=== PATIENT | female | born 1985 | race Caucasian/White ===

== ENCOUNTER 2018-06-12 10:48 | Inpatient (IN) | payer MEDICARE, MEDICAID ==
[2018-06-12] MEDS ORDERED: METOCLOPRAMIDE HCL INJ/PF 10 MG/2 ML SDV IV ONE (12:04)
[2018-06-12] MEDS ORDERED: DIPHENHYDRAMINE HCL 50 MG/ML VIAL IV ONE (12:05)
[2018-06-12] MEDS ORDERED: HYDROMORPHONE HCL INJ/PF 2 MG/ML AMPULE IV ONE (12:06)
[2018-06-12] MEDS ORDERED: NORMAL SALINE 1000 ML 1,000 ML IV ONE (12:07)
[2018-06-12 12:45] LABS: APPEARANCE,URINE CLEAR; BILIRUBIN,URINE NEGATIVE (NEGATIVE); COLOR,URINE YELLOW; GLUCOSE, URINE NEGATIVE (NEGATIVE); HEMOGLOBIN 14.9 g/dL (12.0-15.5); KETONES,URINE NEGATIVE (NEGATIVE); LEUKOCYTE ESTERASE,URINE NEGATIVE (NEGATIVE); MEAN CORPUSCULAR HEMOGLOBIN 29.2 pg (27.0-33.4); MEAN CORPUSCULAR HGB CONC 33.9 g/dL (32.0-36.0); MEAN CORPUSCULAR VOLUME 86 fl (80-97); NITRITE,URINE NEGATIVE (NEGATIVE); PLATELET COUNT 519 10^3/uL (150-450); PROTEIN,URINE NEGATIVE (NEGATIVE); RED BLOOD COUNT 5.11 10^6/uL (3.72-5.28); UROBILINOGEN,URINE NEGATIVE mg/dL (<2.0); WHITE BLOOD COUNT 20.1 10^3/uL (4.0-10.5)
[2018-06-12 13:11] LABS: ALANINE AMINOTRANSFERASE 70 U/L (9-52); ALBUMIN 4.6 g/dL (3.5-5.0); ALKALINE PHOSPHATASE 143 U/L (38-126); ANION GAP 16 (5-19); ASPARTATE AMINO TRANSFERASE 117 U/L (14-36); BILIRUBIN,DIRECT 0.6 mg/dL (0.0-0.4); BILIRUBIN,TOTAL 1.3 mg/dL (0.2-1.3); BLOOD UREA NITROGEN 9 mg/dL (7-20); CARBON DIOXIDE 24 mmol/L (22-30); CHLORIDE 104 mmol/L (98-107); GLUCOSE 113 mg/dL (75-110); POTASSIUM 4.4 mmol/L (3.6-5.0); SODIUM 144.1 mmol/L (137-145); TOTAL PROTEIN 7.8 g/dL (6.3-8.2)
[2018-06-12 13:20] LABS: ABSOLUTE LYMPHOCYTES# (MANUAL) 1.8 10^3/uL (0.5-4.7); ABSOLUTE MONOCYTES # (MANUAL) 0.2 10^3/uL (0.1-1.4); ABSOLUTE NEUTROPHILS# (MANUAL) 18.1 10^3/uL (1.7-8.2); BAND NEUTROPHILS % (MANUAL) 2 % (3-5); BASOPHILS % (MANUAL) 0 % (0-2); EOSINOPHILS % (MANUAL) 0 % (0-6); LYMPHOCYTES % (MANUAL) 9 % (13-45); MONOCYTES % (MANUAL) 1 % (3-13); PLATELET COMMENT INCREASED; POLYCHROMASIA SLIGHT; SEGMENTED NEUTROPHILS % (MAN) 88 % (42-78); TOTAL CELLS COUNTED 100
--- NOTE | 2018-06-12 14:54 | ER Document Report ---
ED General - General Chief Complaint: Abdominal Pain Stated Complaint: ABDOMINAL PAIN Time Seen by Provider: 06/12/18 11:56 TRAVEL OUTSIDE OF THE [place] IN LAST 30 DAYS: No - HPI Onset: This morning Onset/Duration: Sudden, Constant Quality of pain: Sharp Severity: Moderate Associated symptoms: Nausea Exacerbated by: Denies Relieved by: Denies Similar symptoms previously: No Recently seen / treated by doctor: No Notes: Patient is a 33-year-old female that presents to the emergency department for chief complaint of abdominal pain. Patient complaining of a sharp epigastric abdominal pain. The pain is nonradiating. She denies any exacerbating or relieving factors. The pain began this morning and has been increasing in intensity and constant since onset. She reports some nausea with no emesis. She states she has a history of GERD and Agustina fundoplication in the past. She states she has intermittent episodes of epigastric pain but has never had anything similar to this. She denies history of gallbladder issues or pancreatitis. She occasionally drinks alcohol but has not had anything in the last few days. Past Medical History: Seizures, GERD Past Surgical History: Agustina fundoplication Social History: Occasional alcohol. Daily marijuana. Denies tobacco Family History: Reviewed and noncontributory for presenting illness Allergies: Reviewed, see documented allergy list. REVIEW OF SYSTEMS: CONSTITUTIONAL : No fever No chills No diaphoresis No recent illness EENT: No vision changes No congestion No sore throat CARDIOVASCULAR: No chest pain No palpitations RESPIRATORY: No shortness of breath No cough No difficulty breathing GASTROINTESTINAL: abdominal pain nausea No vomiting No diarrhea GENITOURINARY: No dysuria No hematuria No difficulty urinating MUSCULOSKELETAL: No back pain No leg pain No arm pain SKIN: No rashes No lesions LYMPHATIC: No swollen, enlarged glands. NEUROLOGICAL: No lightheadedness No headache No weakness No paresthesias PSYCHIATRIC: No anxiety No depression PHYSICAL EXAMINATION: Vital signs reviewed, nursing noted reviewed. GENERAL: Well-appearing, well-nourished and in no acute distress. HEAD: Atraumatic, normocephalic. EYES: Eyes appear normal, extraocular movements intact, sclera anicteric, conjunctiva are normal. ENT: nares patent, oropharynx clear without exudates. Moist mucous membranes. NECK: Normal range of motion, supple without lymphadenopathy LUNGS: Breath sounds clear to auscultation bilaterally and equal. No wheezes rales or rhonchi. HEART: Regular rate and rhythm without murmurs ABDOMEN: Soft, epigastric and right upper quadrant tenderness, normoactive bowel sounds. No rebound, guarding, or rigidity. No masses appreciated. EXTREMITIES: Nontender, good range of motion, no pitting or edema. NEUROLOGICAL: No focal neurological deficits. Moves all extremities spontaneously Motor and sensory grossly intact on exam. PSYCH: Normal mood, normal affect. SKIN: Warm, Dry, normal turgor, no rashes or lesions noted on exposed skin - Related Data Allergies/Adverse Reactions: morphine Allergy (Verified 06/12/18 12:03) Penicillins Allergy (Verified 06/12/18 10:52) Past Medical History - Social History Smoking Status: Never Smoker Frequency of alcohol use: Occasional Drug Abuse: Marijuana Family History: Reviewed & Not Pertinent Patient has suicidal ideation: No Patient has homicidal ideation: No Neurological Medical History: Reports: Hx Seizures Renal/ Medical History: Denies: Hx Peritoneal Dialysis GI Medical History: Reports: Hx Gastroesophageal Reflux Disease Psychiatric Medical History: Reports: Hx Depression - +anxiety Past Surgical History: Reports: Hx Abdominal Surgery - niss surgery, Hx Oral Surgery - wisdom teeth, Hx Tonsillectomy Physical Exam - Vital signs Vitals: Temp Pulse Resp BP Pulse Ox 97.8 F 83 12 153/86 H 97 06/12/18 10:54 06/12/18 10:54 06/12/18 10:54 06/12/18 10:54 06/12/18 10:54 Course - Re-evaluation Re-evalutation: 06/12/18 14:54 Vitals reviewed. Nursing notes reviewed. Patient is feeling improved after Zofran and fentanyl. Lab work shows a significant elevation of her lipase consistent with acute pancreatitis. She also has a leukocytosis of 20. Ultrasound obtained to evaluate for acute cholecystitis and is pending at this time. 06/12/18 15:13 Patient reevaluated and is now stating her pain has started to increase. She will be given a second dose of fentanyl. Her nausea is still well controlled. Patient's ultrasound shows cholelithiasis with no acute cholecystitis. Patient will be admitted to the hospital for further treatment of her acute pancreatitis. Case discussed with Dr. Combs who is accepted admission. Patient and family in agreement with this plan. She is stable at time of admission Laboratory 06/12/18 06/12/18 06/12/18 12:25 12:25 12:25 WBC 20.1 H RBC 5.11 Hgb 14.9 Hct 44.0 MCV 86 MCH 29.2 MCHC 33.9 RDW 14.0 Plt Count 519 H Total Counted 100 Seg Neutrophils % Not Reportable Seg Neuts % (Manual) 88 H Band Neutrophils % 2 L Lymphocytes % Not Reportable Lymphocytes % (Manual) 9 L Monocytes % Not Reportable Monocytes % (Manual) 1 L Eosinophils % Not Reportable Eosinophils % (Manual) 0 Basophils % Not Reportable Basophils % (Manual) 0 Absolute Neutrophils Not Reportable Abs Neuts (Manual) 18.1 H Absolute Lymphocytes Not Reportable Abs Lymphs (Manual) 1.8 Absolute Monocytes Not Reportable Abs Monocytes (Manual) 0.2 Absolute Eosinophils Not Reportable Absolute Eos (Manual) 0.0 Absolute Basophils Not Reportable Abs Basophils (Manual) 0.0 Platelet Comment INCREASED Polychromasia SLIGHT Sodium 144.1 Potassium 4.4 Chloride 104 Carbon Dioxide 24 Anion Gap 16 BUN 9 Creatinine 0.72 Est GFR ( Amer) > 60 Est GFR (Non-Af Amer) > 60 Glucose 113 H Calcium 10.0 Total Bilirubin 1.3 Direct Bilirubin 0.6 H Neonat Total Bilirubin Not Reportable Neonat Direct Bilirubin Not Reportable Neonat Indirect Bili Not Reportable AST 117 H ALT 70 H Alkaline Phosphatase 143 H Total Protein 7.8 Albumin 4.6 Lipase 42514.0 H Beta HCG, Quant < 2.39 Total Beta HCG NEGATIVE Urine Color YELLOW Urine Appearance CLEAR Urine pH 5.0 Ur Specific [place] 1.010 Urine Protein NEGATIVE Urine Glucose (UA) NEGATIVE Urine Ketones NEGATIVE Urine Blood MODERATE H Urine Nitrite NEGATIVE Urine Bilirubin NEGATIVE Urine Urobilinogen NEGATIVE Ur Leukocyte Esterase NEGATIVE Urine WBC (Auto) 1 Urine RBC (Auto) 3 Squamous Epi Cells Auto 2 Urine Mucus (Auto) RARE Urine Ascorbic Acid NEGATIVE Abdomen Ultrasound 06/12/18 12:37 IMPRESSION: Cholelithiasis. - Vital Signs Vital signs: Temp Pulse Resp BP Pulse Ox 97.8 F 83 12 153/86 H 97 06/12/18 10:54 06/12/18 10:54 06/12/18 10:54 06/12/18 10:54 06/12/18 10:54 - Laboratory Result Diagrams: 06/12/18 12:25 06/12/18 12:25 Laboratory results interpreted by me: 06/12/18 06/12/18 06/12/18 12:25 12:25 12:25 WBC 20.1 H Plt Count 519 H Seg Neuts % (Manual) 88 H Band Neutrophils % 2 L Lymphocytes % (Manual) 9 L Monocytes % (Manual) 1 L Abs Neuts (Manual) 18.1 H Glucose 113 H Direct Bilirubin 0.6 H AST 117 H ALT 70 H Alkaline Phosphatase 143 H Lipase 34005.0 H Urine Blood MODERATE H Discharge - Discharge Clinical Impression: Pancreatitis Qualifiers: Chronicity: acute Pancreatitis type: other Acute pancreatitis complication: unspecified Qualified Code(s): K85.80 - Other acute pancreatitis without necrosis or infection Condition: Stable Disposition: ADMITTED INPATIENT Admitting Provider: Hospitalist Unit Admitted: Medical Floor Referrals: ALEXANDREA ANTOINE DO [Primary Care Provider] - Follow up as needed
--- NOTE | 2018-06-12 15:04 | RADIOLOGY REPORT (SQ) ---
EXAM DESCRIPTION: U/S ABDOMEN LIMITED W/O DOP COMPLETED DATE/TIME: 06/12/2018 2:39 pm REASON FOR STUDY: upper abdominal pain COMPARISON: None. TECHNIQUE: Dynamic and static grayscale images acquired of the abdomen and recorded on PACS. Additio frandy selected color Doppler and spectral images recorded. LIMITATIONS: None. FINDINGS: PANCREAS: No masses. Visualized pancreatic duct normal caliber. LIVER: No masses. Echotexture normal. LIVER VASCULATURE: Normal directional flow of the main portal vein and hepatic veins. GALLBLADDER: Small gallstones are present. There is no ductal dilatation. There is no wall thickeni ng. There is no pericholecystic fluid. ULTRASOUND-DETECTED CONTRERAS'S SIGN: Negative. INTRAHEPATIC DUCTS AND COMMON DUCT: CBD and intrahepatic ducts normal caliber. No filling defects. INFERIOR VENA CAVA: Not imaged. AORTA: No aneurysm. RIGHT KIDNEY: Normal size, 11.3 cm. Normal echogenicity. No solid or suspicious masses. No hydroneph rosis. No calcifications. PERITONEAL AND RIGHT PLEURAL SPACE: No ascites or effusions. OTHER: No other significant findings. IMPRESSION: Cholelithiasis. TECHNICAL DOCUMENTATION: JOB ID: [id number] [employer]- All Rights Reserved Reading location - IP/workstation name: [email or web address]
[2018-06-12] MEDS ORDERED: DEXTROSE 40% GEL 15 GM TUBE PO PRN ×2 (16:01)
[2018-06-12] MEDS ORDERED: ACETAMINOPHEN 650 MG SUPP.RECT PR PRN (16:01)
[2018-06-12] MEDS ORDERED: GLUCAGON,HUMAN RECOMB 1 MG INJ SUBCUT PRN (16:01)
[2018-06-12] MEDS ORDERED: DEXTROSE 50%-WATER 25 GM/50 ML DISP.SYRIN IV PRN ×2 (16:01)
--- NOTE | 2018-06-12 16:30 | PDOC H&P ---
History of Present Illness Admission Date/PCP: 06/12/18 15:22 Corinne GIBBONS Patient complains of: Abdominal pain History of Present Illness: LEIGH PAEZ is a 33 year old female with a past medical history of gastroesophageal reflux disease, Agustina fundoplication, hypothyroidism, depression, anxiety disorder, migraine headaches, seizure disorder, came to the emergency room with complaints of severe abdominal pain from this morning. She was stomach spasms since yesterday like a gas building and it was relieved after burping and passing gas she felt better woke up this morning middle of the night had one bowel movement followed by severe abdominal pain epigastric pain according to her is 20 / 10 associated retching denies any nausea or vomitings . Denies any fevers denies any diarrhea denies any constipation denies any other symptoms. He never had this problem before never been admitted to the hospital for this problem before. Denies any history of gallstones. Denies any history of heavy alcohol use. Denies any history of any IV drug abuse. Past Medical History Cardiac Medical History: Reports: None Pulmonary Medical History: Reports: None EENT Medical History: Reports: None Neurological Medical History: Reports: Seizures Endocrine Medical History: Reports: Hypothyroidism Malignancy Medical History: Reports: None GI Medical History: Reports: Gastroesophageal Reflux Disease Psychiatric Medical History: Reports: Depression - +anxiety, General Anxiety Disorder Infectious Medical History: Reports: None Past Surgical History Past Surgical History: Reports: Tonsillectomy, Other - Left knee surgery. Social History Smoking Status: Never Smoker Family History Family History: Reviewed & Not Pertinent Parental Family History Reviewed: Yes - Heart disease, diabetes, cancer. Children Family History Reviewed: Yes Sibling(s) Family History Reviewed.: Yes Medication/Allergy Allergies/Adverse Reactions: morphine Allergy (Verified 06/12/18 12:03) Penicillins Allergy (Verified 06/12/18 10:52) Review of Systems Constitutional: ABSENT: fever(s), weight gain, weight loss Nose, Mouth, and Throat: ABSENT: mouth pain, sore throat Cardiovascular: ABSENT: edema, orthropnea, palpitations Respiratory: ABSENT: cough, hemoptysis Gastrointestinal: PRESENT: abdominal pain, nausea, other - Complains of severe abdominal pain on gentle palpation. Diffuse abdominal pain. Guarding and rigidity. Neurological: ABSENT: abnormal gait, abnormal speech, confusion, dizziness, focal weakness, syncope Psychiatric: ABSENT: anxiety, depression, homidical ideation, suicidal ideation Physical Exam Vital Signs: Temp Pulse Resp BP Pulse Ox 97.8 F 83 12 153/86 H 97 06/12/18 10:54 06/12/18 10:54 06/12/18 10:54 06/12/18 10:54 06/12/18 10:54 General appearance: PRESENT: severe distress Head exam: PRESENT: atraumatic Eye exam: PRESENT: PERRLA Mouth exam: PRESENT: moist Neck exam: ABSENT: carotid bruit, JVD, lymphadenopathy, thyromegaly Respiratory exam: PRESENT: clear to auscultation amanda. ABSENT: rales, rhonchi, wheezes Cardiovascular exam: PRESENT: RRR. ABSENT: diastolic murmur, rubs, systolic murmur Pulses: PRESENT: normal dorsalis pedis pul GI/Abdominal exam: PRESENT: other - Gentle palpation generalized severe abdominal pain with guarding and rigidity. Bowel sounds are very sluggish. Neurological exam: PRESENT: alert, awake, oriented to person, oriented to place , oriented to time, oriented to situation, CN II-XII grossly intact. ABSENT: motor sensory deficit Psychiatric exam: PRESENT: appropriate affect, normal mood. ABSENT: homicidal ideation, suicidal ideation Results Impressions: Abdomen Ultrasound 06/12/18 12:37 IMPRESSION: Cholelithiasis. Assessment & Plan - Diagnosis (1) Acute pancreatitis Qualifiers: Acute pancreatitis complication: unspecified Is this a current diagnosis for this admission?: Yes Plan: 06/12/2018 plan today is to admit the patient as inpatient. She is going to be n.p.o. I am going to start on IV fluids normal saline at 100 cc/h and PT is allergic to morphine so I cannot give him morphine or Dilaudid ,so I started her on IV fentanyl 25 mg micrograms every 4 hours as needed for pain. SURGICAL consult was requested. CT abdomen pelvis with p.o. IV contrast was requested. Started on IV Levaquin 500 mg daily, Flagyl 500 mg IV 3 times daily. Blood cultures was requested. Patient is on admission is more than 17,000. Order for serial lipase and amylase . (2) GERD (gastroesophageal reflux disease) Is this a current diagnosis for this admission?: Yes Plan: 06/12/2018 patient has history of gastric acid reflux disease with Agustina fundoplication. . She is going to be on famotidine 20 mg IV twice daily. (3) Depression Qualifiers: Depression Type: unspecified Qualified Code(s): F32.9 - Major depressive disorder, single episode, unspecified Is this a current diagnosis for this admission?: Yes Plan: 06/12/2018 patient is given the history of depression. Because she is n.p.o. I am going to put her on Ativan 1 mg IV every 6 as needed for anxiety. Denies any depressive symptoms today. - Time Time Spent: 30 to 50 Minutes Critical Time spent with patient: Less than 15 minutes Anticipated discharge: Home
[2018-06-12 17:18] LABS: INTERNATIONAL RATION (INR) 1.02; PROTHROMBIN TIME 13.9 SEC (11.4-15.4)
[2018-06-12] MEDS: FENTANYL CITRATE INJ/PF 100 MCG/2 ML AMPUL IV PRN ×2 (17:26→21:30)
[2018-06-12] MEDS: NORMAL SALINE 1000 ML 1,000 ML IV PRN (18:16)
[2018-06-12] MEDS: LEVOFLOXACIN 500 MG/D5W RTU 500 MG/100 ML RTUPB IV SCH (18:17)
--- NOTE | 2018-06-12 18:38 | EKG REPORT ---
SEVERITY:- NORMAL ECG - SINUS RHYTHM : Confirmed by: Angelita Reese 12-Jun-2018 18:37:15
--- NOTE | 2018-06-12 19:38 | PDOC CONSULTATION ---
Consultation Consult Date: 06/12/18 Consult reason:: Acute pancreatitis History of Present Illness Admission Date/PCP: 06/12/18 15:22 Corinne GIBBONS Patient complains of: Abdominal pain History of Present Illness: LEIGH PAEZ is a 33 year old female Who presents to the emergency department via ground rescue complaining of a 1 day history of abdominal pain intense epigastric associate with nausea vomiting ; one bowel movement last p.m., normal. Denies history of previous episodes of acute abdominal pain; no history of trauma. She is several years status post Agustina fundoplication for gastroesophageal reflux disease. Patient evaluated in the emergency department where she is found to have significant abdominal tenderness, leukocytosis, hyper lipasemia and gallbladder ultrasonography showing gallstones. Patient was admitted to the hospitalist service for first episode of acute pancreatitis likely secondary to cholelithiasis. Surgery was consulted Past Medical History Past Medical History: GERD; overweight Cardiac Medical History: Reports: None Pulmonary Medical History: Reports: None EENT Medical History: Reports: None Neurological Medical History: Reports: Seizures Endocrine Medical History: Reports: Hypothyroidism Malignancy Medical History: Reports: None GI Medical History: Reports: Gastroesophageal Reflux Disease Psychiatric Medical History: Reports: Depression, General Anxiety Disorder Infectious Medical History: Reports: None Past Surgical History Past Surgical History: Reports: Tonsillectomy, Other - Left knee surgery. Social History Smoking Status: Former Smoker Number of Years Smokin Last Time Smoked: 5 years ago Frequency of Alcohol Use: Occasional Hx Recreational Drug Use: Yes Drugs: Marijuana Hx Prescription Drug Abuse: No - Advance Directive Resuscitation Status: Full Code Family History Family History: Reviewed & Not Pertinent Parental Family History Reviewed: Yes Children Family History Reviewed: Yes Sibling(s) Family History Reviewed.: Yes Medication/Allergy Home Medications: Clonazepam [Klonopin 1 mg Tablet] 1 mg PO Q8HP PRN 06/12/18 Norgestimate-Ethinyl Estradiol [Zcj-Iv-[id number] Tablet] 1 each PO DAILY Topiramate [Topamax 100 Mg Tablet] 100 mg PO Q8 06/12/18 Venlafaxine HCl ER [Effexor Xr 75 mg Cap.sr] 75 mg PO DAILY 06/12/18 Allergies/Adverse Reactions: morphine Allergy (Verified 06/12/18 12:03) Penicillins Allergy (Verified 06/12/18 10:52) Review of Systems Constitutional: PRESENT: as per HPI Eyes: ABSENT: visual disturbances Ears: ABSENT: hearing changes Cardiovascular: ABSENT: chest pain, dyspnea on exertion, edema, orthropnea, palpitations Respiratory: ABSENT: cough, hemoptysis Gastrointestinal: PRESENT: as per HPI Integumentary: ABSENT: rash, wounds Neurological: ABSENT: abnormal gait, abnormal speech, confusion, dizziness, focal weakness, syncope Physical Exam Vital Signs: Temp Pulse Resp BP Pulse Ox 98.4 F 74 18 141/87 H 99 06/12/18 17:49 06/12/18 17:49 06/12/18 17:49 06/12/18 17:49 06/12/18 17:49 Intake & Output 06/11/18 06/12/18 06/13/18 06:59 06:59 06:59 Intake Total 1000 Balance 1000 Weight 99.01 kg General appearance: PRESENT: mild distress Head exam: PRESENT: normocephalic Eye exam: PRESENT: EOMI Mouth exam: PRESENT: dry mucosa Respiratory exam: PRESENT: clear to auscultation amanda Cardiovascular exam: PRESENT: RRR GI/Abdominal exam: PRESENT: other - Diffusely tender with guarding in the epigastric region; bowel sounds hypoactive. No active vomiting. Rectal exam: PRESENT: deferred Extremities exam: PRESENT: full ROM Musculoskeletal exam: PRESENT: full ROM Neurological exam: PRESENT: alert, awake, oriented to time, oriented to situation Psychiatric exam: PRESENT: appropriate affect Results Impressions: Abdomen Ultrasound 06/12/18 12:37 IMPRESSION: Cholelithiasis. Assessment & Plan - Diagnosis (1) Acute pancreatitis Qualifiers: Acute pancreatitis complication: unspecified Is this a current diagnosis for this admission?: Yes Plan: Impression: Acute, first episode of pancreatitis, likely secondary to cholelithiasis with associated leukocytosis, elevated liver function studies, elevated lipase level and gallbladder ultrasonography showing gallstones; low likelihood of complicated disease Recommendations: 1. Agree with n.p.o., IV fluids, consideration for IV antibiotics, serial laboratory profile 2. Follow-up with CT scan of abdomen and pelvis as ordered by hospitalist service 3. If patient improves with current medical management, anticipate interval laparoscopic, possible open cholecystectomy with intraoperative cholangiography this admission. This was discussed with patient. (2) Elevated LFTs Is this a current diagnosis for this admission?: Yes (3) Cholelithiasis Is this a current diagnosis for this admission?: Yes (4) Depression Qualifiers: Depression Type: unspecified Qualified Code(s): F32.9 - Major depressive disorder, single episode, unspecified Is this a current diagnosis for this admission?: Yes (5) GERD (gastroesophageal reflux disease) Is this a current diagnosis for this admission?: Yes - Time Time Spent: 30 to 50 Minutes Smoking Cessation Education: over 10 minutes Medications reviewed and adjusted accordingly: Yes Anticipated discharge: Home - Inpatient Certification Based on my medical assessment, after consideration of the patient's comorbidities, presenting symptoms, or acuity I expect that the services needed warrant INPATIENT care.: Yes I certify that my determination is in accordance with my understanding of Medicare's requirements for reasonable and necessary INPATIENT services [42 CFR 412.3e].: Yes Medical Necessity: Need For IV Fluids, Need for Pain Control, Need for IV Antibiotics, Need for Surgery
--- NOTE | 2018-06-12 20:50 | RADIOLOGY REPORT (SQ) ---
EXAM DESCRIPTION: CT ABD/PELVIS WITH IV ORAL COMPLETED DATE/TIME: 06/12/2018 8:29 pm REASON FOR STUDY: PANCREATITIS COMPARISON: None. TECHNIQUE: CT scan of the abdomen and pelvis performed using helical scanning technique with dynamic intravenous contrast injection. Oral contrast. Images reviewed with lung, soft tissue, and bone win dows. Reconstructed coronal and sagittal MPR images reviewed. Delayed images for evaluation of the ur inary system also acquired. All images stored on PACS. All CT scanners at this facility use dose modulation, iterative reconstruction, and/or weight based d osing when appropriate to reduce radiation dose to as low as reasonably achievable (ALARA). [facility]: Dose Right [facility]: CareDose [facility]: Dose Right [facility]: Teradose 4D [facility]: ChaoWIFI CONTRAST TYPE AND DOSE: contrast/concentration: Isovue 350.00 mg/ml; Total Contrast Delivered: 100.0 ml; Total Saline Delivered: 72.0 ml RENAL FUNCTION: BUN 9 creatinine 0.7225 RADIATION DOSE: CT Rad equipment meets quality standard of care and radiation dose reduction techniq ues were employed. CTDIvol: 18.9 - 20.4 mGy. DLP: 2155 mGy-cm.. LIMITATIONS: None. FINDINGS: LOWER CHEST: No significant findings. No nodules or infiltrates. LIVER: Normal size. No masses. No dilated ducts. SPLEEN: Normal size. No focal lesions. PANCREAS: Mild peripancreatic edema. There is a small amount of fluid along the anterior renal fasci a on the left. No significant fluid collection in the pancreas. GALLBLADDER: No identified stones by CT criteria. No inflammatory changes to suggest cholecystitis. ADRENAL GLANDS: No significant masses or asymmetry. RIGHT KIDNEY AND URETER: No solid masses. No significant calcifications. No hydronephrosis or hyd roureter. LEFT KIDNEY AND URETER: No solid masses. No significant calcifications. No hydronephrosis or hydr oureter. AORTA AND VESSELS: No aneurysm. No dissection. Renal arteries, SMA, celiac without stenosis. RETROPERITONEUM: No retroperitoneal adenopathy, hemorrhage or masses. BOWEL AND PERITONEAL CAVITY: No masses or inflammatory changes. No free fluid or peritoneal masses. APPENDIX: Normal. PELVIS: No mass. No free fluid. Normal bladder. ABDOMINAL WALL: No masses. No hernias. BONES: No significant or acute findings. OTHER: No other significant finding. IMPRESSION: Mild pancreatitis. No pseudocyst. TECHNICAL DOCUMENTATION: JOB ID: [id number] Quality ID # [id number]: Final reports with documentation of one or more dose reduction techniques (e.g., Au tomated exposure control, adjustment of the mA and/or kV according to patient size, use of iterative reconstruction technique) 2010 [employer]- All Rights Reserved Reading location - IP/workstation name: [email or web address]
[2018-06-12] MEDS: FAMOTIDINE INJ/PF 20 MG/2 ML SDV IV SCH (21:10)
[2018-06-12] MEDS: ONDANSETRON HCL INJ/PF 4 MG/2 ML SDV IV PRN (21:10)
[2018-06-12] MEDS: METRONIDAZOLE 500 MG/NS RTU 500 MG/100 ML RTUPB IV SCH (21:11)
[2018-06-12] MEDS ORDERED: METRONIDAZOLE 500 MG/NS RTU 250 MG in CONTAINER,EMPTY 1 EACH IV SCH (22:00)
[2018-06-13] MEDS: FENTANYL CITRATE INJ/PF 100 MCG/2 ML AMPUL IV PRN (04:12)
[2018-06-13] MEDS: ONDANSETRON HCL INJ/PF 4 MG/2 ML SDV IV PRN ×4 (04:28→21:26)
[2018-06-13 04:59] LABS: ABSOLUTE LYMPHOCYTES (AUTO) 2.7 10^3/uL (0.5-4.7); ABSOLUTE MONOCYTES (AUTO) 0.7 10^3/uL (0.1-1.4); ABSOLUTE NEUT (AUTO) 12.1 10^3/uL (1.7-8.2); BASOPHILS % (AUTO) 0.2 % (0-2); EOSINOPHILS % (AUTO) 0.3 % (0-6); HEMATOCRIT 37.5 % (36.0-47.0); HEMOGLOBIN 12.9 g/dL (12.0-15.5); LYMPHOCYTES % (AUTO) 17.2 % (13-45); MEAN CORPUSCULAR HEMOGLOBIN 29.4 pg (27.0-33.4); MEAN CORPUSCULAR HGB CONC 34.3 g/dL (32.0-36.0); MEAN CORPUSCULAR VOLUME 86 fl (80-97); MONOCYTES % (AUTO) 4.2 % (3-13); PLATELET COUNT 385 10^3/uL (150-450); RED BLOOD COUNT 4.38 10^6/uL (3.72-5.28); RED CELL DISTRIBUTION WIDTH 14.1 % (11.5-14.0); SEGMENTED NEUTROPHILS % (AUTO) 78.1 % (42-78); TOTAL CELLS COUNTED % (AUTO) 100 %; WHITE BLOOD COUNT 15.5 10^3/uL (4.0-10.5)
[2018-06-13 05:30] LABS: AMYLASE 382 U/L (30-110); ANION GAP 14 (5-19); BLOOD UREA NITROGEN 7 mg/dL (7-20); CALCIUM 9.1 mg/dL (8.4-10.2); CARBON DIOXIDE 21 mmol/L (22-30); CHLORIDE 105 mmol/L (98-107); GLUCOSE 94 mg/dL (75-110); LIPASE 1481.2 U/L (23-300); POTASSIUM 3.9 mmol/L (3.6-5.0); SODIUM 140.3 mmol/L (137-145)
[2018-06-13] MEDS: METRONIDAZOLE 500 MG/NS RTU 500 MG/100 ML RTUPB IV SCH ×3 (06:05→21:25)
[2018-06-13] MEDS: NORMAL SALINE 1000 ML 1,000 ML IV PRN (06:07)
[2018-06-13] MEDS: ENOXAPARIN SODIUM INJ 40 MG/0.4 ML DISP.SYRIN SUBCUT SCH (10:43)
[2018-06-13] MEDS: KETOROLAC TROMETHAMINE INJ/PF 30 MG/1 ML SDV IV PRN ×3 (10:43→23:26)
[2018-06-13] MEDS: FAMOTIDINE INJ/PF 20 MG/2 ML SDV IV SCH ×2 (10:55→21:26)
[2018-06-13] MEDS ORDERED: HYDROMORPHONE HCL INJ/PF 2 MG/ML AMPULE IV PRN (13:14)
--- NOTE | 2018-06-13 13:14 | PDOC PROGRESS REPORT ---
Subjective Progress Note for:: 06/13/18 Subjective:: Still having diffuse abdominal pain. Reason For Visit: ACUTE PANCREATITIS Physical Exam Vital Signs: Temp Pulse Resp BP Pulse Ox 98.1 F 76 16 127/76 H 96 06/13/18 12:34 06/13/18 12:34 06/13/18 12:34 06/13/18 12:34 06/13/18 12:34 Intake & Output 06/12/18 06/13/18 06/14/18 06:59 06:59 06:59 Intake Total 2300 Balance 2300 Weight 100.7 kg General appearance: PRESENT: no acute distress, cooperative Eye exam: PRESENT: conjunctiva pink Respiratory exam: PRESENT: clear to auscultation amanda Cardiovascular exam: PRESENT: RRR GI/Abdominal exam: PRESENT: soft - Soft, mildly distended, diffuse abdominal tenderness especially in the upper abdomen without peritoneal signs Results Laboratory Results: 06/13/18 04:08 06/13/18 04:08 06/13/18 06/13/18 06/13/18 04:08 04:08 04:08 WBC 15.5 H RBC 4.38 Hgb 12.9 Hct 37.5 MCV 86 MCH 29.4 MCHC 34.3 RDW 14.1 H Plt Count 385 Seg Neutrophils % 78.1 H Lymphocytes % 17.2 Monocytes % 4.2 Eosinophils % 0.3 Basophils % 0.2 Absolute Neutrophils 12.1 H Absolute Lymphocytes 2.7 Absolute Monocytes 0.7 Absolute Eosinophils 0.0 Absolute Basophils 0.0 Sodium 140.3 Potassium 3.9 Chloride 105 Carbon Dioxide 21 L Anion Gap 14 BUN 7 Creatinine 0.63 Est GFR ( Amer) > 60 Est GFR (Non-Af Amer) > 60 Glucose 94 Calcium 9.1 Amylase 382 H Lipase 1481.2 H TSH 2.50 Impressions: Abdomen/Pelvis CT 06/12/18 00:00 IMPRESSION: Mild pancreatitis. No pseudocyst. Abdomen Ultrasound 06/12/18 12:37 IMPRESSION: Cholelithiasis. Assessment & Plan - Diagnosis (1) Acute pancreatitis Qualifiers: Acute pancreatitis complication: unspecified Is this a current diagnosis for this admission?: Yes Plan: Likely gallstone pancreatitis. Continue bowel rest, IV pain medication and IV fluids. When pancreatitis has subsided we will plan laparoscopic cholecystectomy. Her pathophysiology discussed with the patient with diagrams.
[2018-06-13] MEDS ORDERED: TOPIRAMATE 100 MG TABLET PO SCH (14:00)
[2018-06-13] MEDS: TOPIRAMATE 25 MG TABLET PO SCH ×2 (14:28→21:26)
--- NOTE | 2018-06-13 17:33 | PDOC PROGRESS REPORT ---
Subjective Progress Note for:: 06/13/18 Subjective:: The patient is a 33-year-old female with a past medical history of GERD, Agustina fundoplication, hypothyroidism, depression, anxiety, migraines, and seizure disorder who was admitted 06/12/18 with cholelithiasis and pancreatitis. Patient was seen on morning rounds. She was found resting in bed comfortably on room air. Initially she was sleeping, but did wake easily when I set her name. She reports continued abdominal discomfort and nausea but no further episodes of emesis. She reports that her pain has been moderately well controlled with the fentanyl. She denies fever, chills, chest pain, dyspnea, diarrhea and constipation. She has no new questions or concerns today. No concerns per nursing. Reason For Visit: ACUTE PANCREATITIS Physical Exam Vital Signs: Temp Pulse Resp BP Pulse Ox 98.3 F 83 16 125/68 98 06/13/18 16:00 06/13/18 16:00 06/13/18 16:00 06/13/18 16:00 06/13/18 16:00 Intake & Output 06/12/18 06/13/18 06/14/18 06:59 06:59 06:59 Intake Total 2300 1100 Balance 2300 1100 Weight 100.7 kg General appearance: PRESENT: no acute distress, cooperative, obese, well- developed, well-nourished Head exam: PRESENT: atraumatic, normocephalic Eye exam: PRESENT: conjunctiva pink, EOMI, PERRLA. ABSENT: scleral icterus Ear exam: PRESENT: normal external ear exam Mouth exam: PRESENT: moist, tongue midline Neck exam: ABSENT: carotid bruit, JVD, lymphadenopathy, thyromegaly Respiratory exam: PRESENT: clear to auscultation amanda, symmetrical, unlabored. ABSENT: rales, rhonchi, wheezes Cardiovascular exam: PRESENT: RRR, +S1, +S2. ABSENT: diastolic murmur, rubs, systolic murmur Pulses: PRESENT: normal dorsalis pedis pul Vascular exam: PRESENT: normal capillary refill GI/Abdominal exam: PRESENT: distended, hypoactive bowel sounds, soft, tenderness. ABSENT: guarding, mass, organolmegaly, rebound Rectal exam: PRESENT: deferred Extremities exam: PRESENT: full ROM. ABSENT: calf tenderness, clubbing, pedal edema Neurological exam: PRESENT: alert, awake, oriented to person, oriented to place , oriented to time, oriented to situation, CN II-XII grossly intact. ABSENT: motor sensory deficit Psychiatric exam: PRESENT: appropriate affect, normal mood. ABSENT: homicidal ideation, suicidal ideation Skin exam: PRESENT: dry, intact, warm. ABSENT: cyanosis, rash Results Laboratory Results: 06/13/18 04:08 06/13/18 04:08 06/13/18 06/13/18 06/13/18 04:08 04:08 04:08 WBC 15.5 H RBC 4.38 Hgb 12.9 Hct 37.5 MCV 86 MCH 29.4 MCHC 34.3 RDW 14.1 H Plt Count 385 Seg Neutrophils % 78.1 H Lymphocytes % 17.2 Monocytes % 4.2 Eosinophils % 0.3 Basophils % 0.2 Absolute Neutrophils 12.1 H Absolute Lymphocytes 2.7 Absolute Monocytes 0.7 Absolute Eosinophils 0.0 Absolute Basophils 0.0 Sodium 140.3 Potassium 3.9 Chloride 105 Carbon Dioxide 21 L Anion Gap 14 BUN 7 Creatinine 0.63 Est GFR ( Amer) > 60 Est GFR (Non-Af Amer) > 60 Glucose 94 Calcium 9.1 Amylase 382 H Lipase 1481.2 H TSH 2.50 Impressions: Abdomen/Pelvis CT 06/12/18 00:00 IMPRESSION: Mild pancreatitis. No pseudocyst. Abdomen Ultrasound 06/12/18 12:37 IMPRESSION: Cholelithiasis. Assessment & Plan - Diagnosis (1) Acute pancreatitis Qualifiers: Acute pancreatitis complication: unspecified Is this a current diagnosis for this admission?: Yes Plan: The patient was admitted with severe abdominal discomfort associated with nausea and vomiting. Lipase was elevated to >17k; has trended down to 1481. Amylase elevated to 382 Abd U/S revealed cholelithiasis. CT of the abdomen and pelvis with IV and oral contrast demonstrated mild pancreatitis. Blood cultures are negative. Leukocytosis is improved and the patient remains afebrile. She has been admitted to the medical floor. She is placed in n.p.o. status and supported with IV fluids. She has been empirically been placed on IV Levaquin and Flagyl. Antiemetics and analgesics as needed for symptom management. Surgery has been consulted; appreciate their evaluation and recommendations. (2) Cholelithiasis Is this a current diagnosis for this admission?: Yes Plan: Surgery has been consulted; appreciate their evaluation and assistance. Dr. Moore is planning cholecystectomy once pancreatitis has resolved. (3) Depression Qualifiers: Depression Type: unspecified Qualified Code(s): F32.9 - Major depressive disorder, single episode, unspecified Is this a current diagnosis for this admission?: Yes Plan: Holding Effexor and Klonopin secondary to n.p.o. status. (4) Elevated LFTs Is this a current diagnosis for this admission?: Yes Plan: Secondary to gallstone pancreatitis. Remaining plan as above. (5) GERD (gastroesophageal reflux disease) Is this a current diagnosis for this admission?: Yes Plan: Continue IV Pepcid twice daily. (6) Leukocytosis Is this a current diagnosis for this admission?: Yes Plan: Secondary to #1. Blood cultures are negative at 24 hours. Continues IV Levaquin and metronidazole. Remaining plan as above. (7) Seizure disorder Is this a current diagnosis for this admission?: Yes Plan: Continue Topamax 75 mg p.o. every 8 hours (decreased from the patient's home dose of 100 mg every 8 hours per patient request). Otherwise, patient is to remain in n.p.o. status. If she is not able to tolerate her Topamax, may need to consider IV AED's. - Time Time Spent with patient: 15-24 minutes Medications reviewed and adjusted accordingly: Yes Anticipated discharge: Home
[2018-06-13] MEDS: LEVOFLOXACIN 500 MG/D5W RTU 500 MG/100 ML RTUPB IV SCH (17:59)
[2018-06-14] MEDS: TOPIRAMATE 25 MG TABLET PO SCH ×3 (05:47→21:35)
[2018-06-14] MEDS: METRONIDAZOLE 500 MG/NS RTU 500 MG/100 ML RTUPB IV SCH ×3 (05:47→21:35)
[2018-06-14 07:00] LABS: ABSOLUTE EOSINOPHILS # (AUTO) 0.1 10^3/uL (0.0-0.6); ABSOLUTE LYMPHOCYTES (AUTO) 2.4 10^3/uL (0.5-4.7); ABSOLUTE NEUT (AUTO) 11.7 10^3/uL (1.7-8.2); BASOPHILS % (AUTO) 0.3 % (0-2); EOSINOPHILS % (AUTO) 0.4 % (0-6); HEMATOCRIT 33.6 % (36.0-47.0); HEMOGLOBIN 11.5 g/dL (12.0-15.5); LYMPHOCYTES % (AUTO) 15.8 % (13-45); MEAN CORPUSCULAR HEMOGLOBIN 29.3 pg (27.0-33.4); MEAN CORPUSCULAR HGB CONC 34.2 g/dL (32.0-36.0); MEAN CORPUSCULAR VOLUME 86 fl (80-97); MONOCYTES % (AUTO) 6.3 % (3-13); PLATELET COUNT 375 10^3/uL (150-450); RED BLOOD COUNT 3.93 10^6/uL (3.72-5.28); RED CELL DISTRIBUTION WIDTH 13.8 % (11.5-14.0); SEGMENTED NEUTROPHILS % (AUTO) 77.2 % (42-78); TOTAL CELLS COUNTED % (AUTO) 100 %; WHITE BLOOD COUNT 15.1 10^3/uL (4.0-10.5)
[2018-06-14 07:21] LABS: AMYLASE 109 U/L (30-110); ANION GAP 11 (5-19); BLOOD UREA NITROGEN 8 mg/dL (7-20); CALCIUM 8.9 mg/dL (8.4-10.2); CARBON DIOXIDE 22 mmol/L (22-30); CHLORIDE 107 mmol/L (98-107); GLUCOSE 87 mg/dL (75-110); LIPASE 285.6 U/L (23-300)
[2018-06-14] MEDS: KETOROLAC TROMETHAMINE INJ/PF 30 MG/1 ML SDV IV PRN ×3 (07:46→23:21)
[2018-06-14] MEDS: NORMAL SALINE 1000 ML 1,000 ML IV PRN (07:50)
[2018-06-14] MEDS ORDERED: ROCURONIUM BROMIDE INJ 50 MG/5 ML VIAL IV ONE (08:25)
[2018-06-14] MEDS ORDERED: SUCCINYLCHOLINE CHLORIDE INJ 200 MG/10 ML VIAL ONE (08:25)
[2018-06-14] MEDS: ENOXAPARIN SODIUM INJ 40 MG/0.4 ML DISP.SYRIN SUBCUT SCH (09:01)
[2018-06-14] MEDS: FAMOTIDINE INJ/PF 20 MG/2 ML SDV IV SCH ×2 (09:02→21:35)
[2018-06-14] MEDS ORDERED: HYDROMORPHONE HCL INJ/PF 2 MG/ML AMPULE ONE (13:23)
[2018-06-14] MEDS ORDERED: DEXAMETHASONE SOD PHOSPHATE INJ 4 MG/1 ML VIAL ONE (13:23)
[2018-06-14] MEDS ORDERED: ACETAMINOPHEN 1,000 MG/100 ML RTUPB IV ONE (13:23)
[2018-06-14] MEDS ORDERED: FENTANYL CITRATE INJ/PF 100 MCG/2 ML AMPUL ONE (13:23)
[2018-06-14] MEDS ORDERED: ONDANSETRON HCL INJ/PF 4 MG/2 ML SDV ONE (13:23)
[2018-06-14] MEDS ORDERED: MIDAZOLAM 2 MG/2 ML INJ ONE (13:23)
[2018-06-14] MEDS ORDERED: PROPOFOL INJ 200 MG/20 ML VIAL IV ONE (13:23)
[2018-06-14] MEDS ORDERED: BUPIVACAINE HCL 0.25 % INJ/PF (2.5 MG/1 ML) 30 ML VIAL ONE (14:12)
--- NOTE | 2018-06-14 14:26 | PDOC PROGRESS REPORT ---
Subjective Progress Note for:: 06/14/18 Subjective:: There is a 33-year-old female with biliary pancreatitis. She is feeling better today. She denies chest pain, shortness of breath, fevers, chills, melena, hematochezia, nausea, vomiting, blurry vision, fatigue, dizziness. She does report epigastric abdominal pain that is cramping in nature and episodic. Reason For Visit: ACUTE PANCREATITIS Physical Exam Vital Signs: Temp Pulse Resp BP Pulse Ox 98.5 F 62 14 116/80 97 06/14/18 14:17 06/14/18 14:17 06/14/18 14:17 06/14/18 14:17 06/14/18 14:17 Intake & Output 06/13/18 06/14/18 06/15/18 06:59 06:59 06:59 Intake Total 2300 1400 Balance 2300 1400 Weight 100.7 kg 102.1 kg General appearance: PRESENT: no acute distress, cooperative Head exam: PRESENT: atraumatic, normocephalic Eye exam: PRESENT: EOMI, PERRLA. ABSENT: scleral icterus Mouth exam: PRESENT: neck supple Teeth exam: ABSENT: poor dentation Neck exam: ABSENT: meningismus, tenderness, thyromegaly, tracheal deviation Respiratory exam: PRESENT: unlabored. ABSENT: accessory muscle use, chest wall tenderness, tachypnea, wheezes Cardiovascular exam: PRESENT: RRR Pulses: PRESENT: normal radial pulses GI/Abdominal exam: PRESENT: soft, tenderness - Mild epigastric. ABSENT: distended, firm, guarding Rectal exam: PRESENT: deferred Extremities exam: ABSENT: clubbing Musculoskeletal exam: ABSENT: deformity Neurological exam: PRESENT: alert, awake, oriented to person, oriented to place , oriented to time, oriented to situation, CN II-XII grossly intact. ABSENT: motor sensory deficit Psychiatric exam: PRESENT: anxious - Mildly. ABSENT: agitated, depressed Focused psych exam: ABSENT: delusional Skin exam: ABSENT: cyanosis, erythema, jaundice Results Laboratory Results: 06/14/18 06:45 06/14/18 06:45 06/14/18 06/14/18 06:45 06:45 WBC 15.1 H RBC 3.93 Hgb 11.5 L Hct 33.6 L MCV 86 MCH 29.3 MCHC 34.2 RDW 13.8 Plt Count 375 Seg Neutrophils % 77.2 Lymphocytes % 15.8 Monocytes % 6.3 Eosinophils % 0.4 Basophils % 0.3 Absolute Neutrophils 11.7 H Absolute Lymphocytes 2.4 Absolute Monocytes 1.0 Absolute Eosinophils 0.1 Absolute Basophils 0.0 Sodium 140.0 Potassium 4.0 Chloride 107 Carbon Dioxide 22 Anion Gap 11 BUN 8 Creatinine 0.73 Est GFR ( Amer) > 60 Est GFR (Non-Af Amer) > 60 Glucose 87 Calcium 8.9 Amylase 109 Lipase 285.6 Impressions: Abdomen/Pelvis CT 06/12/18 00:00 IMPRESSION: Mild pancreatitis. No pseudocyst. Abdomen Ultrasound 06/12/18 12:37 IMPRESSION: Cholelithiasis. Assessment & Plan - Diagnosis (1) Biliary acute pancreatitis Qualifiers: Acute pancreatitis complication: no infection or necrosis Qualified Code(s) : K85.10 - Biliary acute pancreatitis without necrosis or infection Is this a current diagnosis for this admission?: Yes - Plan Summary Plan Summary: Is a 33-year-old female with biliary pancreatitis. The patient's amylase and lipase are within the normal range today. She is feeling better, although she still experiences some abdominal discomfort. I recommended cholecystectomy as definitive treatment, and the patient has agreed. This time she appears stable for surgery. Plan for operative intervention today. Hopefully we can restart her diet tomorrow. Will follow.
[2018-06-14] MEDS ORDERED: FENTANYL CITRATE INJ/PF 100 MCG/2 ML AMPUL IV PRN ×3 (14:59)
[2018-06-14] MEDS ORDERED: MEPERIDINE HCL/PF INJ 25 MG/1 ML DISP.SYRIN IV PRN (14:59)
[2018-06-14] MEDS ORDERED: PROMETHAZINE HCL INJ 25 MG/1 ML VIAL IV PRN (14:59)
[2018-06-14] MEDS ORDERED: DIPHENHYDRAMINE HCL 50 MG/ML VIAL IV PRN (14:59)
[2018-06-14] MEDS ORDERED: SUGAMMADEX SODIUM 200 MG/2 ML SDV IV ONE (15:39)
[2018-06-14] MEDS: FENTANYL CITRATE INJ/PF 100 MCG/2 ML AMPUL ONE ×5 (16:03→16:30)
--- NOTE | 2018-06-14 16:31 | PDOC PROGRESS REPORT ---
Subjective Progress Note for:: 06/14/18 Subjective:: The patient is a 33-year-old female with a past medical history of GERD, Agustina fundoplication, hypothyroidism, depression, anxiety, migraines, and seizure disorder who was admitted 06/12/18 with cholelithiasis and pancreatitis. Patient was seen on morning rounds. She was found resting in bed comfortably on room air. The patient reports that she continues to have intermittent abdominal discomfort and nausea but no further episodes of emesis. Overall, she feels improved. In fact, she was able to ambulate with her significant other today and left the floor. She tells me that she ambulated to the cafeteria but did not have anything to eat. She has discussed the proposed cholecystectomy with her mother and is agreeable to move forward. She is hopeful that surgery can get her on the schedule for today. She denies fever, chills, chest pain, dyspnea, diarrhea and constipation. She has no other questions or concerns today. No concerns per nursing.All Reason For Visit: ACUTE PANCREATITIS Physical Exam Vital Signs: Temp Pulse Resp BP Pulse Ox 98.2 F 75 19 142/76 H 96 06/14/18 15:43 06/14/18 16:13 06/14/18 16:13 06/14/18 16:13 06/14/18 16:13 Intake & Output 06/13/18 06/14/18 06/15/18 06:59 06:59 06:59 Intake Total 2300 1400 2050 Output Total 510 Balance 2300 1400 1540 Weight 100.7 kg 102.1 kg General appearance: PRESENT: no acute distress, cooperative, obese, well- developed, well-nourished Head exam: PRESENT: atraumatic, normocephalic Eye exam: PRESENT: conjunctiva pink, EOMI, PERRLA. ABSENT: scleral icterus Ear exam: PRESENT: normal external ear exam Mouth exam: PRESENT: moist, tongue midline Neck exam: ABSENT: carotid bruit, JVD, lymphadenopathy, thyromegaly Respiratory exam: PRESENT: clear to auscultation amanda, symmetrical, unlabored. ABSENT: rales, rhonchi, wheezes Cardiovascular exam: PRESENT: RRR. ABSENT: diastolic murmur, rubs, systolic murmur Pulses: PRESENT: normal dorsalis pedis pul Vascular exam: PRESENT: normal capillary refill GI/Abdominal exam: PRESENT: normal bowel sounds, soft, tenderness - intermittent , epigastric. ABSENT: distended, guarding, mass, organolmegaly, rebound Rectal exam: PRESENT: deferred Extremities exam: PRESENT: full ROM. ABSENT: calf tenderness, clubbing, pedal edema Neurological exam: PRESENT: alert, awake, oriented to person, oriented to place , oriented to time, oriented to situation, CN II-XII grossly intact. ABSENT: motor sensory deficit Psychiatric exam: PRESENT: appropriate affect, normal mood. ABSENT: homicidal ideation, suicidal ideation Skin exam: PRESENT: dry, intact, warm. ABSENT: cyanosis, rash Results Laboratory Results: 06/14/18 06:45 06/14/18 06:45 06/14/18 06/14/18 06:45 06:45 WBC 15.1 H RBC 3.93 Hgb 11.5 L Hct 33.6 L MCV 86 MCH 29.3 MCHC 34.2 RDW 13.8 Plt Count 375 Seg Neutrophils % 77.2 Lymphocytes % 15.8 Monocytes % 6.3 Eosinophils % 0.4 Basophils % 0.3 Absolute Neutrophils 11.7 H Absolute Lymphocytes 2.4 Absolute Monocytes 1.0 Absolute Eosinophils 0.1 Absolute Basophils 0.0 Sodium 140.0 Potassium 4.0 Chloride 107 Carbon Dioxide 22 Anion Gap 11 BUN 8 Creatinine 0.73 Est GFR ( Amer) > 60 Est GFR (Non-Af Amer) > 60 Glucose 87 Calcium 8.9 Amylase 109 Lipase 285.6 Impressions: Abdomen/Pelvis CT 06/12/18 00:00 IMPRESSION: Mild pancreatitis. No pseudocyst. Abdomen Ultrasound 06/12/18 12:37 IMPRESSION: Cholelithiasis. Assessment & Plan - Diagnosis (1) Acute pancreatitis Qualifiers: Acute pancreatitis complication: unspecified Is this a current diagnosis for this admission?: Yes Plan: Resolved. The patient was admitted with severe abdominal discomfort associated with nausea and vomiting. Lipase was elevated to >17k; has trended down to 285. Amylase was elevated to 382; down to 109 today Abd U/S revealed cholelithiasis. CT of the abdomen and pelvis with IV and oral contrast demonstrated mild pancreatitis. Blood cultures are negative at 24 hours. Leukocytosis is improved and the patient remains afebrile. She has been admitted to the medical floor. She is placed in n.p.o. status and supported with IV fluids. She has been empirically been placed on IV Levaquin and Flagyl. Antiemetics and analgesics as needed for symptom management. Surgery has been consulted; planned cholecystectomy for today. (2) Cholelithiasis Is this a current diagnosis for this admission?: Yes Plan: Surgery has been consulted; cholecystectomy by Dr. Casey today. (3) Depression Qualifiers: Depression Type: unspecified Qualified Code(s): F32.9 - Major depressive disorder, single episode, unspecified Is this a current diagnosis for this admission?: Yes Plan: Holding Effexor and Klonopin secondary to n.p.o. status. Anticipate we will be able to resume her maintenance medications tomorrow following her cholecystectomy. (4) Elevated LFTs Is this a current diagnosis for this admission?: Yes Plan: Secondary to biliary pancreatitis. Remaining plan as above. (5) GERD (gastroesophageal reflux disease) Is this a current diagnosis for this admission?: Yes Plan: Continue IV Pepcid twice daily. (6) Leukocytosis Is this a current diagnosis for this admission?: Yes Plan: Secondary to #1. Blood cultures are negative at 24 hours. Continues IV Levaquin and metronidazole. Remaining plan as above. (7) Seizure disorder Is this a current diagnosis for this admission?: Yes Plan: Continue Topamax 75 mg p.o. every 8 hours (decreased from the patient's home dose of 100 mg every 8 hours per patient request). - Time Time Spent with patient: 15-24 minutes Medications reviewed and adjusted accordingly: Yes Anticipated discharge: Home Within: within 48 hours
[2018-06-14] MEDS: LEVOFLOXACIN 500 MG/D5W RTU 500 MG/100 ML RTUPB IV SCH (17:35)
[2018-06-14] MEDS: HYDROCODONE/ACETAMINOPHEN 10-325 MG TABLET PO PRN (19:08)
--- NOTE | 2018-06-14 21:38 | Operative Report ---
Nonrecallable Operative Report DATE OF SURGERY: 06/14/18 PREOPERATIVE DIAGNOSIS: Biliary pancreatitis POSTOPERATIVE DIAGNOSIS: Biliary pancreatitis OPERATION: Laparoscopic cholecystectomy SURGEON: ZAK ALTMAN NEUROPSYCHOLOGIST: MANUELA ARTEAGA ANESTHESIA: GA TISSUE REMOVED OR ALTERED: Gallbladder COMPLICATIONS: None apparent ESTIMATED BLOOD LOSS: Minimal PROCEDURE: Drains/implants: None. Procedure in detail: After informed consent was obtained, the patient was brought into the operating room and laid in the supine position. The area of the abdomen was prepped and draped in a normal sterile fashion. A supraumbilical incision was created with a 15 blade scalpel. Dissection was carried through the subcutaneous tissue using sharp and blunt means. The cicatrix was identified, grasped with a Meredith clamp, and retracted upwards. The linea alba fascia was incised sharply, the abdomen was entered sharply. The balloon trocar was inserted, and pneumoperitoneum was achieved. A 5 mm subxiphoid port was placed under direct laparoscopic visualization. 2 more 5 mm ports were placed in the right upper quadrant in similar fashion. Atraumatic graspers were placed through the 5 mm ports. The gallbladder was retracted cephalad and laterally. Dissection was begun in the triangle of Calot. The cystic duct and cystic artery were fully visualized and skeletonized , seeing the liver through the triangle. Once the critical view of safety was obtained, the cystic duct and cystic artery were clipped and cut with laparoscopic instruments. The gallbladder was removed from the liver using Bovie electrocautery. The gallbladder was grasped with a large clamp and pulled out through the umbilicus. The camera was reinserted, and the hilum was inspected. The hilum appeared to be free of any leakage of blood or bile. Once this was confirmed, the 5 mm trochars were removed under direct laparoscopic visualization. The supraumbilical trocar was removed, and pneumoperitoneum was relieved. The supraumbilical fascia was closed using 0 Vicryl suture in [id number] fashion. The overlying skin was closed using 4-0 Vicryl Rapide suture in subcuticular fashion. All sponge, instrument, and needle counts were correct x2. Condition: Stable. Manuela Arteaga PA-C was scrubbed and present the entirety of the procedure. She assisted with all portions of the procedure including placement of the trochars, manipulation of the gallbladder, removal of the gallbladder, closure of the fascia, and closure of the skin.
[2018-06-15] MEDS: METRONIDAZOLE 500 MG/NS RTU 500 MG/100 ML RTUPB IV SCH ×3 (05:18→21:27)
[2018-06-15] MEDS: HYDROCODONE/ACETAMINOPHEN 10-325 MG TABLET PO PRN ×3 (05:18→23:41)
[2018-06-15] MEDS: TOPIRAMATE 25 MG TABLET PO SCH ×3 (05:18→21:28)
[2018-06-15 07:01] LABS: ABSOLUTE MONOCYTES (AUTO) 0.8 10^3/uL (0.1-1.4); ABSOLUTE NEUT (AUTO) 11.3 10^3/uL (1.7-8.2); BASOPHILS % (AUTO) 0.3 % (0-2); EOSINOPHILS % (AUTO) 0.2 % (0-6); HEMATOCRIT 32.5 % (36.0-47.0); HEMOGLOBIN 10.9 g/dL (12.0-15.5); LYMPHOCYTES % (AUTO) 14.1 % (13-45); MEAN CORPUSCULAR HGB CONC 33.7 g/dL (32.0-36.0); MEAN CORPUSCULAR VOLUME 86 fl (80-97); MONOCYTES % (AUTO) 5.9 % (3-13); PLATELET COUNT 371 10^3/uL (150-450); RED BLOOD COUNT 3.77 10^6/uL (3.72-5.28); SEGMENTED NEUTROPHILS % (AUTO) 79.5 % (42-78); TOTAL CELLS COUNTED % (AUTO) 100 %; WHITE BLOOD COUNT 14.3 10^3/uL (4.0-10.5)
[2018-06-15 07:27] LABS: ALANINE AMINOTRANSFERASE 29 U/L (9-52); ALBUMIN 3.2 g/dL (3.5-5.0); ALKALINE PHOSPHATASE 79 U/L (38-126); AMYLASE 76 U/L (30-110); ANION GAP 10 (5-19); ASPARTATE AMINO TRANSFERASE 23 U/L (14-36); BILIRUBIN,DIRECT 0.3 mg/dL (0.0-0.4); BILIRUBIN,TOTAL 0.4 mg/dL (0.2-1.3); BLOOD UREA NITROGEN 7 mg/dL (7-20); CALCIUM 9.1 mg/dL (8.4-10.2); CARBON DIOXIDE 20 mmol/L (22-30); CHLORIDE 109 mmol/L (98-107); GLUCOSE 114 mg/dL (75-110); LIPASE 305.3 U/L (23-300); POTASSIUM 4.5 mmol/L (3.6-5.0); SODIUM 138.7 mmol/L (137-145); TOTAL PROTEIN 5.9 g/dL (6.3-8.2)
--- NOTE | 2018-06-15 09:58 | PDOC PROGRESS REPORT ---
Subjective Progress Note for:: 06/15/18 Subjective:: Still having some mid abdominal pain. Tolerating clear liquids well. Patient states that she is feel too weak to go home. Reason For Visit: ACUTE PANCREATITIS Physical Exam Vital Signs: Temp Pulse Resp BP Pulse Ox 98.3 F 54 L 14 99/60 L 100 06/15/18 09:00 06/15/18 09:00 06/15/18 09:00 06/15/18 09:00 06/15/18 09:00 Intake & Output 06/14/18 06/15/18 06/16/18 06:59 06:59 06:59 Intake Total 1400 3750 Output Total 510 Balance 1400 3240 Weight 102.1 kg 106.6 kg General appearance: PRESENT: no acute distress, cooperative Respiratory exam: PRESENT: clear to auscultation amanda Cardiovascular exam: PRESENT: RRR GI/Abdominal exam: PRESENT: other - Soft, moderate amount of mid abdominal and epigastric tenderness but much improved from a couple of days ago. No peritoneal signs. Wounds are clean dry and intact. Results Laboratory Results: 06/15/18 06:36 06/15/18 06:36 06/15/18 06/15/18 06:36 06:36 WBC 14.3 H RBC 3.77 Hgb 10.9 L Hct 32.5 L MCV 86 MCH 29.0 MCHC 33.7 RDW 14.0 Plt Count 371 Seg Neutrophils % 79.5 H Lymphocytes % 14.1 Monocytes % 5.9 Eosinophils % 0.2 Basophils % 0.3 Absolute Neutrophils 11.3 H Absolute Lymphocytes 2.0 Absolute Monocytes 0.8 Absolute Eosinophils 0.0 Absolute Basophils 0.0 Sodium 138.7 Potassium 4.5 Chloride 109 H Carbon Dioxide 20 L Anion Gap 10 BUN 7 Creatinine 0.74 Est GFR ( Amer) > 60 Est GFR (Non-Af Amer) > 60 Glucose 114 H Calcium 9.1 Total Bilirubin 0.4 AST 23 ALT 29 Alkaline Phosphatase 79 Total Protein 5.9 L Albumin 3.2 L Amylase 76 Lipase 305.3 H Impressions: Abdomen/Pelvis CT 06/12/18 00:00 IMPRESSION: Mild pancreatitis. No pseudocyst. Abdomen Ultrasound 06/12/18 12:37 IMPRESSION: Cholelithiasis. Assessment & Plan - Diagnosis (1) Acute pancreatitis Qualifiers: Acute pancreatitis complication: unspecified Is this a current diagnosis for this admission?: Yes (2) Biliary acute pancreatitis Qualifiers: Acute pancreatitis complication: no infection or necrosis Qualified Code(s) : K85.10 - Biliary acute pancreatitis without necrosis or infection Is this a current diagnosis for this admission?: Yes Plan: Underwent laparoscopic cholecystectomy yesterday. Appears to be recovering from her surgery okay but she may still have some component of pancreatitis as indicated by her abdominal pain. Would not advance her diet. Encourage ambulation. If she does not make progress in the next couple of days will obtain CT scan to evaluate for complications of pancreatitis.
[2018-06-15] MEDS: FAMOTIDINE INJ/PF 20 MG/2 ML SDV IV SCH ×2 (10:14→21:28)
[2018-06-15] MEDS: ENOXAPARIN SODIUM INJ 40 MG/0.4 ML DISP.SYRIN SUBCUT SCH (10:15)
[2018-06-15] MEDS ORDERED: HYDROMORPHONE HCL INJ/PF 2 MG/ML AMPULE IV PRN (11:32)
[2018-06-15] MEDS ORDERED: CLONAZEPAM 1 MG TABLET PO PRN (13:24)
--- NOTE | 2018-06-15 13:24 | PDOC PROGRESS REPORT ---
Subjective Progress Note for:: 06/15/18 Subjective:: The patient is a 33-year-old female with a past medical history of GERD, Agustina fundoplication, hypothyroidism, depression, anxiety, migraines, and seizure disorder who was admitted 06/12/18 with cholelithiasis and pancreatitis. Patient was seen on morning rounds. She was found resting in bed comfortably on room air. The patient reports that she continues to have intermittent abdominal discomfort and nausea but no further episodes of emesis. She states that her pain is essentially unchanged from yesterday prior to her cholecystectomy. It is notable that her pain is not worsened; she is not having any surgical site pain. She is also complaining of epigastric "burning "and reflux symptoms today. She states that she has been ambulatory in the hallways and did experience some slight dizziness this morning but no presyncopal symptoms. She denies fever, chills, chest pain, dyspnea, diarrhea and constipation. She has no other questions or concerns today. No concerns per nursing. Reason For Visit: ACUTE PANCREATITIS Physical Exam Vital Signs: Temp Pulse Resp BP Pulse Ox 97.3 F 55 L 16 107/76 97 06/15/18 11:35 06/15/18 11:35 06/15/18 11:35 06/15/18 11:35 06/15/18 11:35 Intake & Output 06/14/18 06/15/18 06/16/18 06:59 06:59 06:59 Intake Total 1400 3750 Output Total 510 100 Balance 1400 3240 -100 Weight 102.1 kg 106.6 kg General appearance: PRESENT: no acute distress, cooperative, obese, well- developed, well-nourished Head exam: PRESENT: atraumatic, normocephalic Eye exam: PRESENT: conjunctiva pink, EOMI, PERRLA. ABSENT: scleral icterus Ear exam: PRESENT: normal external ear exam Mouth exam: PRESENT: moist, tongue midline Neck exam: ABSENT: carotid bruit, JVD, lymphadenopathy, thyromegaly Respiratory exam: PRESENT: clear to auscultation amanda, symmetrical, unlabored. ABSENT: rales, rhonchi, wheezes Cardiovascular exam: PRESENT: RRR, +S1, +S2. ABSENT: diastolic murmur, rubs, systolic murmur Pulses: PRESENT: normal dorsalis pedis pul Vascular exam: PRESENT: normal capillary refill GI/Abdominal exam: PRESENT: normal bowel sounds, soft, tenderness. ABSENT: distended, guarding, mass, organolmegaly, rebound Rectal exam: PRESENT: deferred Extremities exam: PRESENT: full ROM. ABSENT: calf tenderness, clubbing, pedal edema Neurological exam: PRESENT: alert, awake, oriented to person, oriented to place , oriented to time, oriented to situation, CN II-XII grossly intact. ABSENT: motor sensory deficit Psychiatric exam: PRESENT: appropriate affect, normal mood. ABSENT: homicidal ideation, suicidal ideation Skin exam: PRESENT: dry, intact, warm. ABSENT: cyanosis, rash Results Laboratory Results: 06/15/18 06:36 06/15/18 06:36 06/15/18 06/15/18 06:36 06:36 WBC 14.3 H RBC 3.77 Hgb 10.9 L Hct 32.5 L MCV 86 MCH 29.0 MCHC 33.7 RDW 14.0 Plt Count 371 Seg Neutrophils % 79.5 H Lymphocytes % 14.1 Monocytes % 5.9 Eosinophils % 0.2 Basophils % 0.3 Absolute Neutrophils 11.3 H Absolute Lymphocytes 2.0 Absolute Monocytes 0.8 Absolute Eosinophils 0.0 Absolute Basophils 0.0 Sodium 138.7 Potassium 4.5 Chloride 109 H Carbon Dioxide 20 L Anion Gap 10 BUN 7 Creatinine 0.74 Est GFR ( Amer) > 60 Est GFR (Non-Af Amer) > 60 Glucose 114 H Calcium 9.1 Total Bilirubin 0.4 AST 23 ALT 29 Alkaline Phosphatase 79 Total Protein 5.9 L Albumin 3.2 L Amylase 76 Lipase 305.3 H Impressions: Abdomen/Pelvis CT 06/12/18 00:00 IMPRESSION: Mild pancreatitis. No pseudocyst. Abdomen Ultrasound 06/12/18 12:37 IMPRESSION: Cholelithiasis. Assessment & Plan - Diagnosis (1) Acute pancreatitis Qualifiers: Acute pancreatitis complication: unspecified Is this a current diagnosis for this admission?: Yes Plan: Resolved. The patient was admitted with severe abdominal discomfort associated with nausea and vomiting. Lipase was elevated to >17k; has trended down to 305. Amylase was elevated to 382; down to 76 today Abd U/S revealed cholelithiasis. CT of the abdomen and pelvis with IV and oral contrast demonstrated mild pancreatitis. Blood cultures are negative at 24 hours. Leukocytosis is improved and the patient remains afebrile. She has been admitted to the medical floor. Now status post cholecystectomy. Clear liquid diet; tolerating well. Continue IV Levaquin and Flagyl. Antiemetics and analgesics as needed for symptom management. Appreciate Surgery's assistance. (2) Cholelithiasis Is this a current diagnosis for this admission?: Yes Plan: Now postop day #1 cholecystectomy. Surgery recommends continuing clear liquid diet. Antiemetics and analgesics as needed. (3) Depression Qualifiers: Depression Type: unspecified Qualified Code(s): F32.9 - Major depressive disorder, single episode, unspecified Is this a current diagnosis for this admission?: Yes Plan: We will resume the patient's home dose Effexor and Klonopin. (4) Elevated LFTs Is this a current diagnosis for this admission?: Yes Plan: Resolved. Secondary to biliary pancreatitis. Remaining plan as above. (5) GERD (gastroesophageal reflux disease) Is this a current diagnosis for this admission?: Yes Plan: Continue IV Pepcid twice daily. Maalox as needed. (6) Leukocytosis Is this a current diagnosis for this admission?: Yes Plan: Secondary to #1; continues to trend down. Blood cultures are negative at 24 hours. Continues IV Levaquin and metronidazole. Remaining plan as above. (7) Seizure disorder Is this a current diagnosis for this admission?: Yes Plan: Continue Topamax 75 mg p.o. every 8 hours (decreased from the patient's home dose of 100 mg every 8 hours per patient request). - Time Time Spent with patient: 15-24 minutes Medications reviewed and adjusted accordingly: Yes Anticipated discharge: Home Within: within 24 hours
[2018-06-15] MEDS: KETOROLAC TROMETHAMINE INJ/PF 30 MG/1 ML SDV IV PRN (15:02)
[2018-06-15] MEDS: ONDANSETRON HCL INJ/PF 4 MG/2 ML SDV IV PRN (15:02)
[2018-06-15] MEDS: NORMAL SALINE 1000 ML 1,000 ML IV PRN (16:35)
[2018-06-15] MEDS: LEVOFLOXACIN 500 MG/D5W RTU 500 MG/100 ML RTUPB IV SCH (19:00)
[2018-06-16 05:30] LABS: HEMATOCRIT 30.9 % (36.0-47.0); HEMOGLOBIN 10.4 g/dL (12.0-15.5); MEAN CORPUSCULAR HEMOGLOBIN 29.2 pg (27.0-33.4); MEAN CORPUSCULAR HGB CONC 33.7 g/dL (32.0-36.0); MEAN CORPUSCULAR VOLUME 87 fl (80-97); PLATELET COUNT 364 10^3/uL (150-450); RED BLOOD COUNT 3.57 10^6/uL (3.72-5.28); RED CELL DISTRIBUTION WIDTH 13.7 % (11.5-14.0); WHITE BLOOD COUNT 15.9 10^3/uL (4.0-10.5)
[2018-06-16] MEDS: TOPIRAMATE 25 MG TABLET PO SCH ×3 (05:41→21:00)
[2018-06-16] MEDS: METRONIDAZOLE 500 MG/NS RTU 500 MG/100 ML RTUPB IV SCH ×3 (05:42→21:00)
[2018-06-16] MEDS: HYDROCODONE/ACETAMINOPHEN 10-325 MG TABLET PO PRN ×4 (05:43→20:42)
[2018-06-16 05:53] LABS: ANION GAP 11 (5-19); BLOOD UREA NITROGEN 10 mg/dL (7-20); CALCIUM 8.8 mg/dL (8.4-10.2); CARBON DIOXIDE 23 mmol/L (22-30); CHLORIDE 109 mmol/L (98-107); GLUCOSE 79 mg/dL (75-110); SODIUM 143.3 mmol/L (137-145)
[2018-06-16] MEDS: FAMOTIDINE INJ/PF 20 MG/2 ML SDV IV SCH ×2 (09:51→21:00)
[2018-06-16] MEDS: ENOXAPARIN SODIUM INJ 40 MG/0.4 ML DISP.SYRIN SUBCUT SCH (09:51)
[2018-06-16] MEDS: VENLAFAXINE HCL 75 MG CAP.SR.24H PO SCH (09:51)
--- NOTE | 2018-06-16 10:09 | PDOC PROGRESS REPORT ---
Subjective Progress Note for:: 06/16/18 Subjective:: epigasric and LUQ pains near umbilical wound No nausea/vomiting Feels like slow to recover. Had the same slow recoery post Agustina Fudoplication 2 years ago in [place]. Reason For Visit: ACUTE PANCREATITIS Physical Exam Vital Signs: Temp Pulse Resp BP Pulse Ox 98.3 F 70 17 95/55 L 96 06/16/18 06:08 06/16/18 06:08 06/16/18 06:08 06/16/18 06:08 06/16/18 06:08 Intake & Output 06/15/18 06/16/18 06/17/18 06:59 06:59 06:59 Intake Total 3750 1848 Output Total 510 100 Balance 3240 1748 Weight 106.6 kg 105.9 kg Exam: All incisions look clean and ry. Some tenderness epigastric and LUQ and near umbilical incision. Abdomen is soft Results Laboratory Results: 06/16/18 04:18 06/16/18 04:18 06/16/18 06/16/18 06/16/18 04:18 04:18 04:18 WBC 15.9 H RBC 3.57 L Hgb 10.4 L Hct 30.9 L MCV 87 MCH 29.2 MCHC 33.7 RDW 13.7 Plt Count 364 Sodium 143.3 Potassium 4.0 Chloride 109 H Carbon Dioxide 23 Anion Gap 11 BUN 10 Creatinine 0.87 Est GFR ( Amer) > 60 Est GFR (Non-Af Amer) > 60 Glucose 79 Calcium 8.8 Lipase 650.5 H Impressions: Abdomen/Pelvis CT 06/12/18 00:00 IMPRESSION: Mild pancreatitis. No pseudocyst. Abdomen Ultrasound 06/12/18 12:37 IMPRESSION: Cholelithiasis. Assessment & Plan - Time Time Spent with patient: 15-24 minutes - Inpatient Certification Medical Necessity: Need Close Monitoring Due to Risk of Patient Decompensation, Need For IV Fluids, Risk of Complication if Not Cared For in Hospital - Plan Summary Plan Summary: Check CT scan of abd/pelvis to R/O Pancreatitis
--- NOTE | 2018-06-16 12:02 | RADIOLOGY REPORT (SQ) ---
EXAM DESCRIPTION: CT ABD/PELVIS WITH IV ORAL COMPLETED DATE/TIME: 06/16/2018 11:36 am REASON FOR STUDY: abdominal pain COMPARISON: 06/12/2018 TECHNIQUE: CT scan of the abdomen and pelvis performed using helical scanning technique with dynamic intravenous contrast injection. No oral contrast. Images reviewed with lung, soft tissue, and bone windows. Reconstructed coronal and sagittal MPR images reviewed. Delayed images for evaluation of the urinary system also acquired. All images stored on PACS. All CT scanners at this facility use dose modulation, iterative reconstruction, and/or weight based d osing when appropriate to reduce radiation dose to as low as reasonably achievable (ALARA). [facility]: Dose Right [facility]: CareDose [facility]: Dose Right [facility]: Teradose 4D [facility]: WhistleTalk CONTRAST TYPE AND DOSE: contrast/concentration: Isovue 350.00 mg/ml; Total Contrast Delivered: 100.0 ml; Total Saline Delivered: 72.0 ml RENAL FUNCTION: BUN 10 creatinine 0.87 RADIATION DOSE: CT Rad equipment meets quality standard of care and radiation dose reduction techniq ues were employed. CTDIvol: 19.6 - 20.9 mGy. DLP: 2281 mGy-cm.. LIMITATIONS: None. FINDINGS: LOWER CHEST: There is limited airspace disease in the left base suggestive of atelectasis. LIVER: Normal size. No masses. No dilated ducts. SPLEEN: Normal size. No focal lesions. PANCREAS: There is persistent, slightly increased peripancreatic edema. No pseudocyst is appreciated . GALLBLADDER: Surgically absent. ADRENAL GLANDS: No significant masses or asymmetry. RIGHT KIDNEY AND URETER: No solid masses. No significant calcifications. No hydronephrosis or hyd roureter. LEFT KIDNEY AND URETER: No solid masses. No significant calcifications. No hydronephrosis or hydr oureter. AORTA AND VESSELS: No aneurysm. No dissection. Renal arteries, SMA, celiac without stenosis. RETROPERITONEUM: No retroperitoneal adenopathy, hemorrhage or masses. BOWEL AND PERITONEAL CAVITY: No masses or inflammatory changes. No free fluid or peritoneal masses. APPENDIX: Normal. PELVIS: No mass. No free fluid. Normal bladder. ABDOMINAL WALL: No masses. No hernias. BONES: No significant or acute findings. OTHER: No other significant finding. IMPRESSION: 1. Pancreatitis. The inflammatory changes have slightly increased since the earlier . There is no pseudocyst. 2. There is some degree of atelectasis in the left lower lobe. TECHNICAL DOCUMENTATION: JOB ID: [id number] Quality ID # [id number]: Final reports with documentation of one or more dose reduction techniques (e.g., Au tomated exposure control, adjustment of the mA and/or kV according to patient size, use of iterative reconstruction technique) 2010 [employer]- All Rights Reserved Reading location - IP/workstation name: [email or web address]
--- NOTE | 2018-06-16 17:55 | PDOC PROGRESS REPORT ---
Subjective Progress Note for:: 06/16/18 Subjective:: The patient is a 33-year-old female with a past medical history of GERD, Agustina fundoplication, hypothyroidism, depression, anxiety, migraines, and seizure disorder who was admitted 06/12/18 with cholelithiasis and pancreatitis. Patient was seen on morning rounds. She was found resting in bed comfortably on room air. She states that she is starting to feel better, however, she reports that she continues to have intermittent abdominal discomfort and nausea but no further episodes of emesis. She denies further episodes of dizziness. She denies fever, chills, headache, dizziness, chest pain, palpitations, dyspnea , diarrhea and constipation. She has no new questions or concerns today. No concerns per nursing. Reason For Visit: ACUTE PANCREATITIS Physical Exam Vital Signs: Temp Pulse Resp BP Pulse Ox 98.1 F 68 16 109/61 98 06/16/18 14:28 06/16/18 14:28 06/16/18 14:28 06/16/18 14:28 06/16/18 14:28 Intake & Output 06/15/18 06/16/18 06/17/18 06:59 06:59 06:59 Intake Total 3750 1848 100 Output Total 510 100 Balance 3240 1748 100 Weight 106.6 kg 105.9 kg General appearance: PRESENT: no acute distress, obese, well-developed, well- nourished Head exam: PRESENT: atraumatic, normocephalic Eye exam: PRESENT: conjunctiva pink, EOMI, PERRLA. ABSENT: scleral icterus Ear exam: PRESENT: normal external ear exam Mouth exam: PRESENT: moist, tongue midline Neck exam: ABSENT: carotid bruit, JVD, lymphadenopathy, thyromegaly Respiratory exam: PRESENT: clear to auscultation amanda. ABSENT: rales, rhonchi, wheezes Cardiovascular exam: PRESENT: RRR. ABSENT: diastolic murmur, rubs, systolic murmur Pulses: PRESENT: normal dorsalis pedis pul Vascular exam: PRESENT: normal capillary refill GI/Abdominal exam: PRESENT: normal bowel sounds, soft, tenderness. ABSENT: distended, guarding, mass, organolmegaly, rebound Rectal exam: PRESENT: deferred Extremities exam: PRESENT: full ROM. ABSENT: calf tenderness, clubbing, pedal edema Neurological exam: PRESENT: alert, awake, oriented to person, oriented to place , oriented to time, oriented to situation, CN II-XII grossly intact. ABSENT: motor sensory deficit Psychiatric exam: PRESENT: anxious, appropriate affect, normal mood. ABSENT: homicidal ideation, suicidal ideation Skin exam: PRESENT: dry, intact, warm. ABSENT: cyanosis, rash Results Laboratory Results: 06/16/18 04:18 06/16/18 04:18 06/16/18 06/16/18 06/16/18 04:18 04:18 04:18 WBC 15.9 H RBC 3.57 L Hgb 10.4 L Hct 30.9 L MCV 87 MCH 29.2 MCHC 33.7 RDW 13.7 Plt Count 364 Sodium 143.3 Potassium 4.0 Chloride 109 H Carbon Dioxide 23 Anion Gap 11 BUN 10 Creatinine 0.87 Est GFR ( Amer) > 60 Est GFR (Non-Af Amer) > 60 Glucose 79 Calcium 8.8 Lipase 650.5 H Impressions: Abdomen Ultrasound 06/12/18 12:37 IMPRESSION: Cholelithiasis. Abdomen/Pelvis CT 06/16/18 00:00 IMPRESSION: 1. Pancreatitis. The inflammatory changes have slightly increased since the earlier study. There is no pseudocyst. 2. There is some degree of atelectasis in the left lower lobe. Assessment & Plan - Diagnosis (1) Acute pancreatitis Qualifiers: Acute pancreatitis complication: unspecified Is this a current diagnosis for this admission?: Yes Plan: Worsened today; lipase elevated to 605. Repeat ABD CT showed increased pancreatic edema. The patient was admitted with severe abdominal discomfort associated with nausea and vomiting. Abd U/S revealed cholelithiasis. CT of the abdomen and pelvis with IV and oral contrast demonstrated mild pancreatitis. Blood cultures are negative at 4 days. Persistent leukocytosis at 15k She has been admitted to the medical floor. Now status post cholecystectomy. Clear liquid diet; tolerating well. Continue IV Levaquin and Flagyl. Antiemetics and analgesics as needed for symptom management. Appreciate Surgery's assistance. (2) Cholelithiasis Is this a current diagnosis for this admission?: Yes Plan: Now postop day #1 cholecystectomy. Surgery recommends continuing clear liquid diet. Antiemetics and analgesics as needed. (3) Depression Qualifiers: Depression Type: unspecified Qualified Code(s): F32.9 - Major depressive disorder, single episode, unspecified Is this a current diagnosis for this admission?: Yes Plan: We will resume the patient's home dose Effexor and Klonopin. (4) Elevated LFTs Is this a current diagnosis for this admission?: Yes Plan: Resolved. Secondary to biliary pancreatitis. Remaining plan as above. (5) GERD (gastroesophageal reflux disease) Is this a current diagnosis for this admission?: Yes Plan: Continue IV Pepcid twice daily. Maalox as needed. (6) Leukocytosis Is this a current diagnosis for this admission?: Yes Plan: Secondary to #1; continues to trend down. Blood cultures are negative at 4 days. Continues IV Levaquin and metronidazole. Remaining plan as above. (7) Seizure disorder Is this a current diagnosis for this admission?: Yes Plan: Continue Topamax 75 mg p.o. every 8 hours (decreased from the patient's home dose of 100 mg every 8 hours per patient request). - Time Time Spent with patient: Less than 15 minutes Medications reviewed and adjusted accordingly: Yes Anticipated discharge: Home
[2018-06-16] MEDS: LEVOFLOXACIN 500 MG/D5W RTU 500 MG/100 ML RTUPB IV SCH (18:32)
[2018-06-16] MEDS: ONDANSETRON HCL INJ/PF 4 MG/2 ML SDV IV PRN (20:59)
[2018-06-17] MEDS: ONDANSETRON HCL INJ/PF 4 MG/2 ML SDV IV PRN ×5 (01:46→21:39)
[2018-06-17] MEDS: HYDROCODONE/ACETAMINOPHEN 10-325 MG TABLET PO PRN ×5 (01:46→21:39)
[2018-06-17] MEDS: NORMAL SALINE 1000 ML 1,000 ML IV PRN (01:47)
[2018-06-17 05:08] LABS: HEMATOCRIT 31.9 % (36.0-47.0); HEMOGLOBIN 10.9 g/dL (12.0-15.5); MEAN CORPUSCULAR HEMOGLOBIN 29.3 pg (27.0-33.4); MEAN CORPUSCULAR HGB CONC 34.1 g/dL (32.0-36.0); MEAN CORPUSCULAR VOLUME 86 fl (80-97); PLATELET COUNT 364 10^3/uL (150-450); RED BLOOD COUNT 3.71 10^6/uL (3.72-5.28); RED CELL DISTRIBUTION WIDTH 13.6 % (11.5-14.0); WHITE BLOOD COUNT 16.7 10^3/uL (4.0-10.5)
[2018-06-17] MEDS: TOPIRAMATE 25 MG TABLET PO SCH (05:29)
[2018-06-17] MEDS: METRONIDAZOLE 500 MG/NS RTU 500 MG/100 ML RTUPB IV SCH (05:29)
[2018-06-17 05:31] LABS: ALANINE AMINOTRANSFERASE 29 U/L (9-52); ALBUMIN 2.9 g/dL (3.5-5.0); ALKALINE PHOSPHATASE 78 U/L (38-126); ANION GAP 12 (5-19); ASPARTATE AMINO TRANSFERASE 24 U/L (14-36); BLOOD UREA NITROGEN 5 mg/dL (7-20); CALCIUM 8.9 mg/dL (8.4-10.2); CARBON DIOXIDE 20 mmol/L (22-30); CHLORIDE 109 mmol/L (98-107); GLUCOSE 88 mg/dL (75-110); POTASSIUM 3.8 mmol/L (3.6-5.0); SODIUM 140.8 mmol/L (137-145); TOTAL PROTEIN 5.5 g/dL (6.3-8.2)
[2018-06-17 05:32] LABS: BILIRUBIN,DIRECT 0.4 mg/dL (0.0-0.4); BILIRUBIN,TOTAL 0.6 mg/dL (0.2-1.3)
[2018-06-17] MEDS: FAMOTIDINE INJ/PF 20 MG/2 ML SDV IV SCH ×2 (09:24→21:31)
[2018-06-17] MEDS: VENLAFAXINE HCL 75 MG CAP.SR.24H PO SCH (09:25)
[2018-06-17] MEDS: ENOXAPARIN SODIUM INJ 40 MG/0.4 ML DISP.SYRIN SUBCUT SCH (09:25)
[2018-06-17] MEDS: VENLAFAXINE HCL 37.5 MG CAP.SR.24H PO SCH ×2 (09:48→21:32)
--- NOTE | 2018-06-17 12:39 | PDOC PROGRESS REPORT ---
Subjective Progress Note for:: 06/17/18 Subjective:: The patient is a 33-year-old female with a past medical history of GERD, Agustina fundoplication, hypothyroidism, depression, anxiety, migraines, and seizure disorder who was admitted 06/12/18 with cholelithiasis and pancreatitis. Patient was seen on morning rounds. She was found resting in bed comfortably on room air. She reports that she is continuing to feel better; pain has improved and is well controlled with oxycodone. She reports improvement in her appetite with reduction in nausea; no further episodes of emesis. She does request to advance her diet today. She denies fever, chills, headache, dizziness, chest pain, palpitations, dyspnea , diarrhea and constipation. She has no new questions or concerns today; hopeful to be discharged home soon. No concerns per nursing. Reason For Visit: ACUTE PANCREATITIS Physical Exam Vital Signs: Temp Pulse Resp BP Pulse Ox 98.4 F 72 14 106/60 98 06/17/18 07:52 06/17/18 07:52 06/17/18 07:52 06/17/18 07:52 06/17/18 07:52 Intake & Output 06/16/18 06/17/18 06/18/18 06:59 06:59 06:59 Intake Total 1848 2547 Output Total 100 Balance 1748 2547 Weight 105.9 kg 105.9 kg General appearance: PRESENT: no acute distress, obese, well-developed, well- nourished Head exam: PRESENT: atraumatic, normocephalic Eye exam: PRESENT: conjunctiva pink, EOMI, PERRLA. ABSENT: scleral icterus Ear exam: PRESENT: normal external ear exam Mouth exam: PRESENT: moist, tongue midline Neck exam: ABSENT: carotid bruit, JVD, lymphadenopathy, thyromegaly Respiratory exam: PRESENT: clear to auscultation amanda, symmetrical, unlabored. ABSENT: rales, rhonchi, wheezes Cardiovascular exam: PRESENT: RRR. ABSENT: diastolic murmur, rubs, systolic murmur Pulses: PRESENT: normal dorsalis pedis pul Vascular exam: PRESENT: normal capillary refill GI/Abdominal exam: PRESENT: normal bowel sounds, soft, tenderness. ABSENT: distended, guarding, mass, organolmegaly, rebound Rectal exam: PRESENT: deferred Extremities exam: PRESENT: full ROM. ABSENT: calf tenderness, clubbing, pedal edema Neurological exam: PRESENT: alert, awake, oriented to person, oriented to place , oriented to time, oriented to situation, CN II-XII grossly intact. ABSENT: motor sensory deficit Psychiatric exam: PRESENT: appropriate affect, normal mood. ABSENT: homicidal ideation, suicidal ideation Skin exam: PRESENT: dry, intact, warm. ABSENT: cyanosis, rash Results Laboratory Results: 06/17/18 04:01 06/17/18 04:01 06/17/18 06/17/18 04:01 04:01 WBC 16.7 H RBC 3.71 L Hgb 10.9 L Hct 31.9 L MCV 86 MCH 29.3 MCHC 34.1 RDW 13.6 Plt Count 364 Sodium 140.8 Potassium 3.8 Chloride 109 H Carbon Dioxide 20 L Anion Gap 12 BUN 5 L Creatinine 0.79 Est GFR ( Amer) > 60 Est GFR (Non-Af Amer) > 60 Glucose 88 Calcium 8.9 Total Bilirubin 0.6 AST 24 ALT 29 Alkaline Phosphatase 78 Total Protein 5.5 L Albumin 2.9 L Lipase 578.0 H Impressions: Abdomen Ultrasound 06/12/18 12:37 IMPRESSION: Cholelithiasis. Abdomen/Pelvis CT 06/16/18 00:00 IMPRESSION: 1. Pancreatitis. The inflammatory changes have slightly increased since the earlier study. There is no pseudocyst. 2. There is some degree of atelectasis in the left lower lobe. Assessment & Plan - Diagnosis (1) Acute pancreatitis Qualifiers: Acute pancreatitis complication: unspecified Is this a current diagnosis for this admission?: Yes Plan: Stable; lipase slightly improved to 578. She reports reduction in abdominal pain and nausea; hopeful to advance diet today. Abd U/S revealed cholelithiasis. CT of the abdomen and pelvis with IV and oral contrast demonstrated mild pancreatitis. Repeat ABD CT showed increased pancreatic edema. Blood cultures are negative at 4 days. Persistent leukocytosis at 15k She has been admitted to the medical floor. Now status post cholecystectomy. Clear liquid diet; tolerating well. We will discontinue IV Levaquin and Flagyl; patient has been afebrile throughout the admission and clinically improving. Antiemetics and analgesics as needed for symptom management. Appreciate Surgery's assistance. (2) Cholelithiasis Is this a current diagnosis for this admission?: Yes Plan: Now postop day #2 cholecystectomy. Clear liquid diet per surgery's recommendations. Will advance as they advise. Antiemetics and analgesics as needed. (3) Depression Qualifiers: Depression Type: unspecified Qualified Code(s): F32.9 - Major depressive disorder, single episode, unspecified Is this a current diagnosis for this admission?: Yes Plan: Continue the patient's home dose Effexor and Klonopin. (4) Elevated LFTs Is this a current diagnosis for this admission?: Yes Plan: Resolved. Secondary to biliary pancreatitis. Remaining plan as above. (5) GERD (gastroesophageal reflux disease) Is this a current diagnosis for this admission?: Yes Plan: Continue IV Pepcid twice daily. Maalox as needed. (6) Leukocytosis Is this a current diagnosis for this admission?: Yes Plan: Secondary to #1; 16.7k today. Patient remains afebrile and is clinically improving. Blood cultures are negative at 4 days. Will discontinue IV antibiotics. Monitor closely for evidence of infection. Remaining plan as above. (7) Seizure disorder Is this a current diagnosis for this admission?: Yes Plan: Resume home dose Topamax 100 mg p.o. every 8 hours. - Time Time Spent with patient: Less than 15 minutes Anticipated discharge: Home Within: Other - Pending surgical clearance.
[2018-06-17] MEDS: TOPIRAMATE 100 MG TABLET PO SCH ×2 (13:50→21:32)
[2018-06-17 17:35] LABS: ABSOLUTE BASOPHILS # (AUTO) 0.1 10^3/uL (0.0-0.2); ABSOLUTE EOSINOPHILS # (AUTO) 0.1 10^3/uL (0.0-0.6); ABSOLUTE MONOCYTES (AUTO) 1.2 10^3/uL (0.1-1.4); BASOPHILS % (AUTO) 0.4 % (0-2); EOSINOPHILS % (AUTO) 0.5 % (0-6); HEMATOCRIT 34.5 % (36.0-47.0); HEMOGLOBIN 11.6 g/dL (12.0-15.5); LYMPHOCYTES % (AUTO) 17.4 % (13-45); MEAN CORPUSCULAR HEMOGLOBIN 29.1 pg (27.0-33.4); MEAN CORPUSCULAR HGB CONC 33.6 g/dL (32.0-36.0); MEAN CORPUSCULAR VOLUME 87 fl (80-97); MONOCYTES % (AUTO) 6.8 % (3-13); PLATELET COUNT 424 10^3/uL (150-450); RED BLOOD COUNT 3.98 10^6/uL (3.72-5.28); SEGMENTED NEUTROPHILS % (AUTO) 74.9 % (42-78); TOTAL CELLS COUNTED % (AUTO) 100 %; WHITE BLOOD COUNT 17.4 10^3/uL (4.0-10.5)
[2018-06-18 05:14] LABS: ABSOLUTE EOSINOPHILS # (AUTO) 0.1 10^3/uL (0.0-0.6); ABSOLUTE MONOCYTES (AUTO) 1.1 10^3/uL (0.1-1.4); ABSOLUTE NEUT (AUTO) 14.5 10^3/uL (1.7-8.2); BASOPHILS % (AUTO) 0.2 % (0-2); EOSINOPHILS % (AUTO) 0.5 % (0-6); HEMATOCRIT 32.8 % (36.0-47.0); LYMPHOCYTES % (AUTO) 15.8 % (13-45); MEAN CORPUSCULAR HEMOGLOBIN 28.8 pg (27.0-33.4); MEAN CORPUSCULAR HGB CONC 33.5 g/dL (32.0-36.0); MEAN CORPUSCULAR VOLUME 86 fl (80-97); MONOCYTES % (AUTO) 5.9 % (3-13); PLATELET COUNT 381 10^3/uL (150-450); RED BLOOD COUNT 3.81 10^6/uL (3.72-5.28); RED CELL DISTRIBUTION WIDTH 13.9 % (11.5-14.0); SEGMENTED NEUTROPHILS % (AUTO) 77.6 % (42-78); TOTAL CELLS COUNTED % (AUTO) 100 %; WHITE BLOOD COUNT 18.8 10^3/uL (4.0-10.5)
[2018-06-18 05:36] LABS: ALANINE AMINOTRANSFERASE 24 U/L (9-52); ALBUMIN 2.9 g/dL (3.5-5.0); ALKALINE PHOSPHATASE 74 U/L (38-126); ANION GAP 12 (5-19); ASPARTATE AMINO TRANSFERASE 21 U/L (14-36); BILIRUBIN,DIRECT 0.3 mg/dL (0.0-0.4); BILIRUBIN,TOTAL 0.5 mg/dL (0.2-1.3); BLOOD UREA NITROGEN 8 mg/dL (7-20); CALCIUM 9.1 mg/dL (8.4-10.2); CARBON DIOXIDE 21 mmol/L (22-30); CHLORIDE 108 mmol/L (98-107); GLUCOSE 88 mg/dL (75-110); LIPASE 344.9 U/L (23-300); POTASSIUM 3.9 mmol/L (3.6-5.0); SODIUM 140.8 mmol/L (137-145); TOTAL PROTEIN 5.5 g/dL (6.3-8.2)
[2018-06-18] MEDS: HYDROCODONE/ACETAMINOPHEN 10-325 MG TABLET PO PRN ×2 (06:01→13:00)
[2018-06-18] MEDS: TOPIRAMATE 100 MG TABLET PO SCH ×2 (06:01→13:53)
[2018-06-18] MEDS: ONDANSETRON HCL INJ/PF 4 MG/2 ML SDV IV PRN ×3 (06:01→20:09)
[2018-06-18] MEDS: ENOXAPARIN SODIUM INJ 40 MG/0.4 ML DISP.SYRIN SUBCUT SCH (10:08)
[2018-06-18] MEDS: FAMOTIDINE INJ/PF 20 MG/2 ML SDV IV SCH (10:08)
[2018-06-18] MEDS: VENLAFAXINE HCL 37.5 MG CAP.SR.24H PO SCH (10:08)
[2018-06-18] MEDS ORDERED: MAG HYDROX/AL HYDROX/SIMETH SUSP 30 ML UDCUP PO PRN (16:06)
--- NOTE | 2018-06-18 16:20 | PDOC PROGRESS REPORT ---
Subjective Progress Note for:: 06/18/18 Subjective:: The patient is a 33-year-old female with a past medical history of GERD, Agustina fundoplication, hypothyroidism, depression, anxiety, migraines, and seizure disorder who was admitted 06/12/18 with cholelithiasis and pancreatitis. Patient was seen on rounds with her mother present. She was found resting in bed comfortably on room air eating her lunch; she has been advanced to a regular diet. She reports continued fatigue, weakness, and intermittent abdominal discomfort. She complains of GERD/reflux symptoms, but denies nausea , vomiting, and diarrhea. Overall, she feels improved and is hopeful to be discharged within the next day or two. She denies fever, chills, headache, dizziness, chest pain, palpitations, dyspnea , cough, nausea/vomiting/diarrhea, constipation, urinary urgency/dysuria She has no new questions or concerns today. Reason For Visit: ACUTE PANCREATITIS Physical Exam Vital Signs: Temp Pulse Resp BP Pulse Ox 98.4 F 82 16 120/70 97 06/18/18 12:00 06/18/18 14:00 06/18/18 12:00 06/18/18 12:00 06/18/18 12:00 Intake & Output 06/17/18 06/18/18 06/19/18 06:59 06:59 06:59 Intake Total 2547 1550 Balance 2547 1550 Weight 105.9 kg 105.9 kg General appearance: PRESENT: no acute distress, obese, well-developed, well- nourished Head exam: PRESENT: atraumatic, normocephalic Eye exam: PRESENT: conjunctiva pink, EOMI, PERRLA. ABSENT: scleral icterus Ear exam: PRESENT: normal external ear exam Mouth exam: PRESENT: moist, tongue midline Neck exam: ABSENT: carotid bruit, JVD, lymphadenopathy, thyromegaly Respiratory exam: PRESENT: clear to auscultation amanda, symmetrical, unlabored. ABSENT: rales, rhonchi, wheezes Cardiovascular exam: PRESENT: RRR, +S1, +S2. ABSENT: diastolic murmur, rubs, systolic murmur Pulses: PRESENT: normal dorsalis pedis pul Vascular exam: PRESENT: normal capillary refill GI/Abdominal exam: PRESENT: hyperactive bowel sounds, normal bowel sounds, soft , tenderness. ABSENT: distended, guarding, mass, organolmegaly, rebound Rectal exam: PRESENT: deferred Extremities exam: PRESENT: full ROM. ABSENT: calf tenderness, clubbing, pedal edema Neurological exam: PRESENT: alert, awake, oriented to person, oriented to place , oriented to time, oriented to situation, CN II-XII grossly intact. ABSENT: motor sensory deficit Psychiatric exam: PRESENT: appropriate affect, normal mood. ABSENT: homicidal ideation, suicidal ideation Skin exam: PRESENT: dry, intact, warm. ABSENT: cyanosis, rash Results Laboratory Results: 06/18/18 05:01 06/18/18 05:01 06/17/18 06/18/18 06/18/18 17:10 05:01 05:01 WBC 17.4 H 18.8 H RBC 3.98 3.81 Hgb 11.6 L 11.0 L Hct 34.5 L 32.8 L MCV 87 86 MCH 29.1 28.8 MCHC 33.6 33.5 RDW 14.0 13.9 Plt Count 424 381 Seg Neutrophils % 74.9 77.6 Lymphocytes % 17.4 15.8 Monocytes % 6.8 5.9 Eosinophils % 0.5 0.5 Basophils % 0.4 0.2 Absolute Neutrophils 13.0 H 14.5 H Absolute Lymphocytes 3.0 3.0 Absolute Monocytes 1.2 1.1 Absolute Eosinophils 0.1 0.1 Absolute Basophils 0.1 0.0 Sodium 140.8 Potassium 3.9 Chloride 108 H Carbon Dioxide 21 L Anion Gap 12 BUN 8 Creatinine 0.98 Est GFR ( Amer) > 60 Est GFR (Non-Af Amer) > 60 Glucose 88 Calcium 9.1 Total Bilirubin 0.5 AST 21 ALT 24 Alkaline Phosphatase 74 Total Protein 5.5 L Albumin 2.9 L Lipase 344.9 H 06/12/18 19:15 Blood Blood Culture - Final NO GROWTH IN 5 DAYS 06/12/18 16:50 Blood Blood Culture - Final NO GROWTH IN 5 DAYS Impressions: Abdomen Ultrasound 06/12/18 12:37 IMPRESSION: Cholelithiasis. Abdomen/Pelvis CT 06/16/18 00:00 IMPRESSION: 1. Pancreatitis. The inflammatory changes have slightly increased since the earlier study. There is no pseudocyst. 2. There is some degree of atelectasis in the left lower lobe. Assessment & Plan - Diagnosis (1) Acute pancreatitis Qualifiers: Acute pancreatitis complication: unspecified Is this a current diagnosis for this admission?: Yes Plan: Lipase trending down. She reports reduction in abdominal pain and nausea. Abd U/S revealed cholelithiasis. CT of the abdomen and pelvis with IV and oral contrast demonstrated mild pancreatitis. Repeat ABD CT showed increased pancreatic edema. Blood cultures are negative at 5 days. Persistent leukocytosis at 18k She has been admitted to the medical floor. Now status post cholecystectomy. She has been advanced to a regular diet.. Antiemetics and analgesics as needed for symptom management. Appreciate Surgery's assistance; discussed with Dr. Basilio today. No indications for resumption of antibiotics at this time. (2) Cholelithiasis Is this a current diagnosis for this admission?: Yes Plan: Now postop day #4 cholecystectomy. Advanced to regular diet today. Antiemetics and analgesics as needed. (3) Depression Qualifiers: Depression Type: unspecified Qualified Code(s): F32.9 - Major depressive disorder, single episode, unspecified Is this a current diagnosis for this admission?: Yes Plan: Continue the patient's home dose Effexor and Klonopin. (4) Elevated LFTs Is this a current diagnosis for this admission?: Yes Plan: Resolved. Secondary to biliary pancreatitis. Remaining plan as above. (5) GERD (gastroesophageal reflux disease) Is this a current diagnosis for this admission?: Yes Plan: Continue IV Pepcid twice daily. Maalox as needed. (6) Leukocytosis Is this a current diagnosis for this admission?: Yes Plan: Secondary to #1. Trending up; 18.8k today. Patient remains afebrile and is clinically improving. Blood cultures are negative at 5 days. IV antibiotics discontinued yesterday. Discussed with surgery; leukocytosis is likely an inflammatory reaction. No need for resumption of antibiotics. Monitor closely for evidence of infection. Remaining plan as above. (7) Seizure disorder Is this a current diagnosis for this admission?: Yes Plan: Resume home dose Topamax 100 mg p.o. every 8 hours. - Time Time Spent with patient: Less than 15 minutes Anticipated discharge: Home
--- NOTE | 2018-06-18 20:08 | PDOC PROGRESS REPORT ---
Subjective Progress Note for:: 06/18/18 Subjective:: abdominal pains but improving Tolerating full liquids well Reason For Visit: ACUTE PANCREATITIS Physical Exam Vital Signs: Temp Pulse Resp BP Pulse Ox 98.8 F 75 16 113/58 L 97 06/18/18 17:19 06/18/18 17:19 06/18/18 17:19 06/18/18 17:19 06/18/18 17:19 Intake & Output 06/17/18 06/18/18 06/19/18 06:59 06:59 06:59 Intake Total 2547 1550 384 Balance 2547 1550 384 Weight 105.9 kg 105.9 kg Exam: abd is soft with epigastric tenderness Results Laboratory Results: 06/18/18 05:01 06/18/18 05:01 06/18/18 06/18/18 05:01 05:01 WBC 18.8 H RBC 3.81 Hgb 11.0 L Hct 32.8 L MCV 86 MCH 28.8 MCHC 33.5 RDW 13.9 Plt Count 381 Seg Neutrophils % 77.6 Lymphocytes % 15.8 Monocytes % 5.9 Eosinophils % 0.5 Basophils % 0.2 Absolute Neutrophils 14.5 H Absolute Lymphocytes 3.0 Absolute Monocytes 1.1 Absolute Eosinophils 0.1 Absolute Basophils 0.0 Sodium 140.8 Potassium 3.9 Chloride 108 H Carbon Dioxide 21 L Anion Gap 12 BUN 8 Creatinine 0.98 Est GFR ( Amer) > 60 Est GFR (Non-Af Amer) > 60 Glucose 88 Calcium 9.1 Total Bilirubin 0.5 AST 21 ALT 24 Alkaline Phosphatase 74 Total Protein 5.5 L Albumin 2.9 L Lipase 344.9 H 06/12/18 19:15 Blood Blood Culture - Final NO GROWTH IN 5 DAYS 06/12/18 16:50 Blood Blood Culture - Final NO GROWTH IN 5 DAYS Impressions: Abdomen Ultrasound 06/12/18 12:37 IMPRESSION: Cholelithiasis. Abdomen/Pelvis CT 06/16/18 00:00 IMPRESSION: 1. Pancreatitis. The inflammatory changes have slightly increased since the earlier study. There is no pseudocyst. 2. There is some degree of atelectasis in the left lower lobe. Assessment & Plan - Time Time Spent with patient: 15-24 minutes - Plan Summary Plan Summary: WBC elevation likely due to inflammatory reaction to pancreatitis Lipase trending down OK to gradually increase po intake
[2018-06-18] MEDS: KETOROLAC TROMETHAMINE INJ/PF 30 MG/1 ML SDV IV PRN (20:09)
[2018-06-19] MEDS: TOPIRAMATE 100 MG TABLET PO SCH ×3 (00:24→15:35)
[2018-06-19] MEDS: FAMOTIDINE INJ/PF 20 MG/2 ML SDV IV SCH ×2 (00:24→09:24)
[2018-06-19] MEDS: VENLAFAXINE HCL 37.5 MG CAP.SR.24H PO SCH ×2 (00:25→09:14)
[2018-06-19] MEDS: KETOROLAC TROMETHAMINE INJ/PF 30 MG/1 ML SDV IV PRN (06:14)
[2018-06-19 07:02] LABS: HEMATOCRIT 31.2 % (36.0-47.0); HEMOGLOBIN 10.6 g/dL (12.0-15.5); MEAN CORPUSCULAR HEMOGLOBIN 28.9 pg (27.0-33.4); MEAN CORPUSCULAR VOLUME 85 fl (80-97); PLATELET COUNT 429 10^3/uL (150-450); RED BLOOD COUNT 3.66 10^6/uL (3.72-5.28); RED CELL DISTRIBUTION WIDTH 13.8 % (11.5-14.0); WHITE BLOOD COUNT 15.9 10^3/uL (4.0-10.5)
[2018-06-19 07:32] LABS: ANION GAP 14 (5-19); BLOOD UREA NITROGEN 11 mg/dL (7-20); CALCIUM 9.2 mg/dL (8.4-10.2); CARBON DIOXIDE 20 mmol/L (22-30); CHLORIDE 107 mmol/L (98-107); GLUCOSE 80 mg/dL (75-110)
[2018-06-19] MEDS: ENOXAPARIN SODIUM INJ 40 MG/0.4 ML DISP.SYRIN SUBCUT SCH (09:23)
[2018-06-19] MEDS ORDERED: CLONAZEPAM 1 MG TABLET PO PRN (12:10)
[2018-06-19] MEDS ORDERED: OXYCODONE HCL IR 5 MG TABLET PO PRN (12:44)
[2018-06-19 13:54] LABS: APPEARANCE,URINE CLOUDY; BILIRUBIN,URINE NEGATIVE (NEGATIVE); COLOR,URINE YELLOW; GLUCOSE, URINE NEGATIVE (NEGATIVE); KETONES,URINE 20 mg/dL (NEGATIVE); LEUKOCYTE ESTERASE,URINE MODERATE (NEGATIVE); NITRITE,URINE NEGATIVE (NEGATIVE); PROTEIN,URINE NEGATIVE (NEGATIVE); URINE SPECIFIC GRAVITY 1.017; UROBILINOGEN,URINE NEGATIVE mg/dL (<2.0)
[2018-06-19 15:06] VITALS: BP 126/85
[2018-06-19 15:33] LABS: HEMATOCRIT 35.4 % (36.0-47.0); MEAN CORPUSCULAR HGB CONC 33.8 g/dL (32.0-36.0); MEAN CORPUSCULAR VOLUME 86 fl (80-97); PLATELET COUNT 511 10^3/uL (150-450); RED BLOOD COUNT 4.13 10^6/uL (3.72-5.28); RED CELL DISTRIBUTION WIDTH 13.8 % (11.5-14.0); WHITE BLOOD COUNT 13.2 10^3/uL (4.0-10.5)
[2018-06-19] MEDS ORDERED: NITROFURANTOIN MONOHYD/M-CRYST 100 MG CAPSULE PO SCH (17:00)
--- NOTE | 2018-06-21 18:35 | PDOC DISCHARGE SUMMARY ---
General - Admit/Disc Date/PCP Admission Date/Primary Care Provider: 06/12/18 15:22 ALEXANDREA Barbosa Corinne ANTOINE Discharge Date: 06/19/18 - Discharge Diagnosis (1) Acute pancreatitis Is this a current diagnosis for this admission?: Yes Summary: Billiary pancreatitis secondary to cholelithiasis. Now s/p cholecystectomy. Resolving; Lipase trending down, pain well controlled with oral analgesics, and tolerating a regular diet. Abd U/S revealed cholelithiasis. CT of the abdomen and pelvis with IV and oral contrast demonstrated mild pancreatitis. Repeat ABD CT showed increased pancreatic edema. Blood cultures are negative at 5 days. Persistent leukocytosis at 18k That patient was supported with IV fluids, analgesics, and antiemetics. Her symptoms improved rapidly following cholecystectomy. At time of discharge, the patient is in stable condition, with well controlled pain, and tolerated a regular diet. She is discharged to home with prescriptions for oxycodone, Zofran, and colace. She is advised to follow up with her primary care provider within 1 week and to return to the emergency department as needed for any concerning symptoms. (2) Cholelithiasis Is this a current diagnosis for this admission?: Yes Summary: Now s/p cholecystectomy by on 06/14/18. (3) Depression Is this a current diagnosis for this admission?: Yes Summary: Stable. Recommend continuing her outpatient medication regiment. (4) Elevated LFTs Is this a current diagnosis for this admission?: Yes Summary: Resolved. Secondary to biliary pancreatitis. (5) GERD (gastroesophageal reflux disease) Is this a current diagnosis for this admission?: Yes Summary: Continue PPI. (6) Leukocytosis Is this a current diagnosis for this admission?: Yes Summary: Secondary to #1. Improved; trended down to ing up; 13.2. Blood cultures are negative at 5 days. She had been empirically placed on IV levaquin and flagyl. (7) Seizure disorder Is this a current diagnosis for this admission?: Yes Summary: Continue home medication regiment. (8) UTI (urinary tract infection) Is this a current diagnosis for this admission?: Yes Summary: On day of discharge, patient reported increased urinary frequency with occasional dysuria. Urinalysis suggestive of UTI. She is provided a prescription for 5 day course of Macrobid. (9) Constipation Is this a current diagnosis for this admission?: Yes Summary: Pt reported difficulty with constipation; requested suppository at discharge. She is provided prescriptions for Colace p.o. and Dulcolax pr. She is encouraged to increase her fluid intake and frequency of ambulation. - Additional Information Resuscitation Status: Full Code Discharge Diet: As Tolerated, Other (Comments) Discharge Activity: Activity As Tolerated, Balance Activity w/Rest, Slowly Increase Activity Prescriptions: Bisacodyl [Dulcolax 10 mg Supp.rect] 10 mg MS DAILYP PRN #14 supp.rect PRN Reason: Unresolved Constipation Docusate Sodium [Colace 100 mg Capsule] 100 mg PO BID #60 capsule Nitrofurantoin Monohyd/M-Cryst [Macrobid 100 mg Capsule] 100 mg PO BIDBS #10 capsule Ondansetron [Zofran Odt 4 mg Tablet] 1 - 2 tab PO Q4HP PRN #10 tab.rapdis PRN Reason: For Nausea/Vomiting Oxycodone HCl/Acetaminophen [Percocet 5-325 mg Tablet] 1 tab PO Q6HP PRN #12 tablet PRN Reason: Home Medications: Clonazepam [Klonopin 1 mg Tablet] 1 mg PO Q8HP PRN 06/12/18 Norgestimate-Ethinyl Estradiol [Twv-Mm-Wnuscwka Tablet] 1 each PO DAILY Topiramate [Topamax 100 mg Tablet] 100 mg PO Q8 06/12/18 Venlafaxine HCl ER [Effexor Xr 75 mg Cap.sr] 75 mg PO DAILY 06/12/18 Acetaminophen [Tylenol 650 mg Supp] 650 mg MS Q4HP PRN supp.rect 06/19/18 Bisacodyl [Dulcolax 10 mg Supp.rect] 10 mg MS DAILYP PRN #14 supp.rect 06/19/18 Docusate Sodium [Colace 100 mg Capsule] 100 mg PO BID #60 capsule 06/19/18 Mag Hydrox/Al Hydrox/Simeth [Maalox Plus Susp 30 Udcup] 30 ml PO Q4HP PRN udc 06/19/18 Nitrofurantoin Monohyd/M-Cryst [Macrobid 100 mg Capsule] 100 mg PO BIDBS #10 capsule 06/19/18 Ondansetron [Zofran Odt 4 mg Tablet] 1 - 2 tab PO Q4HP PRN #10 tab.rapdis Oxycodone HCl/Acetaminophen [Percocet 5-325 mg Tablet] 1 tab PO Q6HP PRN #12 tablet 06/19/18 Topiramate [Topamax 100 mg Tablet] 100 mg PO Q8 tablet 06/19/18 History of Present Illness History of Present Illness: Per H&P by Dr. Combs: LEIGH PAEZ is a 33 year old female with a past medical history of gastroesophageal reflux disease, Agustina fundoplication, hypothyroidism, depression, anxiety disorder, migraine headaches, seizure disorder, came to the emergency room with complaints of severe abdominal pain from this morning. She was stomach spasms since yesterday like a gas building and it was relieved after burping and passing gas she felt better woke up this morning middle of the night had one bowel movement followed by severe abdominal pain epigastric pain according to her is 20 / 10 associated retching denies any nausea or vomitings . Denies any fevers denies any diarrhea denies any constipation denies any other symptoms. He never had this problem before never been admitted to the hospital for this problem before. Denies any history of gallstones. Denies any history of heavy alcohol use. Denies any history of any IV drug abuse. Physical Exam Vital Signs: Temp Pulse Resp BP Pulse Ox 98.2 F 84 16 126/85 H 99 06/19/18 16:02 06/19/18 16:02 06/19/18 16:02 06/19/18 16:02 06/19/18 16:02 Intake & Output 06/20/18 06/21/18 06/22/18 06:59 06:59 06:59 Intake Total 474 Balance 474 Weight 105.9 kg General appearance: PRESENT: no acute distress, obese, well-developed, well- nourished Head exam: PRESENT: atraumatic, normocephalic Eye exam: PRESENT: conjunctiva pink, EOMI, PERRLA. ABSENT: scleral icterus Ear exam: PRESENT: normal external ear exam Mouth exam: PRESENT: moist, tongue midline Neck exam: ABSENT: carotid bruit, JVD, lymphadenopathy, thyromegaly Respiratory exam: PRESENT: clear to auscultation amanda. ABSENT: rales, rhonchi, wheezes Cardiovascular exam: PRESENT: RRR. ABSENT: diastolic murmur, rubs, systolic murmur Pulses: PRESENT: normal dorsalis pedis pul Vascular exam: PRESENT: normal capillary refill GI/Abdominal exam: PRESENT: normal bowel sounds, soft, tenderness. ABSENT: distended, guarding, mass, organolmegaly, rebound Rectal exam: PRESENT: deferred Extremities exam: PRESENT: full ROM. ABSENT: calf tenderness, clubbing, pedal edema Neurological exam: PRESENT: alert, awake, oriented to person, oriented to place , oriented to time, oriented to situation, CN II-XII grossly intact. ABSENT: motor sensory deficit Psychiatric exam: PRESENT: anxious, appropriate affect, normal mood. ABSENT: homicidal ideation, suicidal ideation Skin exam: PRESENT: dry, intact, warm. ABSENT: cyanosis, rash Results Laboratory Results: 06/19/18 14:29 06/19/18 06:33 Impressions: Abdomen Ultrasound 06/12/18 12:37 IMPRESSION: Cholelithiasis. Abdomen/Pelvis CT 06/16/18 00:00 IMPRESSION: 1. Pancreatitis. The inflammatory changes have slightly increased since the earlier study. There is no pseudocyst. 2. There is some degree of atelectasis in the left lower lobe. Qualifiers - * PATIENT BEING DISCHARGED WITH ANY OF THE FOLLOWING DIAGNOSIS: No Plan Discharge Plan: Discharge to home with self care. Follow up with primary care provider within 1 week. Return to the emergency room for concerning symptoms. Time Spent: Less than 30 Minutes
== END 2018-06-19 17:00 | disposition home or self-care (01) | DRG 418 ==
LOC: ER 10:48 → EH 15:22 → 5 17:48
PROVIDERS: ADMIT Hospitalist; ATTEND Hospitalist
PROC: 0FT44ZZ Resection of Gallbladder, Percutaneous Endoscopic Approach (ICD-10-PCS; principal; 2018-06-14 14:30)
DX: K85.10 Biliary acute pancreatitis without necrosis or infection (principal); N39.0 Urinary tract infection, site not specified; K80.20 Calculus of gallbladder without cholecystitis without obstruction; K21.9 Gastro-esophageal reflux disease without esophagitis; E03.9 Hypothyroidism, unspecified; F32.9 Major depressive disorder, single episode, unspecified; K59.00 Constipation, unspecified; E66.9 Obesity, unspecified; F41.9 Anxiety disorder, unspecified; G43.909 Migraine, unspecified, not intractable, without status migrainosus; G40.909 Epilepsy, unspecified, not intractable, without status epilepticus; Z88.6 Allergy status to analgesic agent; Z88.0 Allergy status to penicillin; Z82.49 Family history of ischemic heart disease and other diseases of the circulatory system; Z83.3 Family history of diabetes mellitus; Z98.890 Other specified postprocedural states
CPT/HCPCS: 36415; 74177; 76705; 790; 80048; 80053; 80076; 81001; 81025; 82150; 82962; 83690; 84443; 84702; 85025; 85027; 85610; 87040; 88304; 93005; 93010; 96361; 96374; 96375; 99285; J0131; J0330; J1100; J1170; J1200; J1650; J1885; J1956; J2250; J2405; J2704; J2765; J3010; J3490; J7030; S0028